=== PATIENT | female | born 1955 | race African-American/Black ===

== ENCOUNTER 2017-06-09 07:57 | Inpatient (IN) | payer BC ==
--- NOTE | 2017-06-09 08:15 | ER Document Report ---
ED General - General Chief Complaint: Blurred Vision Stated Complaint: BLURRED VISION Mode of Arrival: Ambulatory Information source: Patient Notes: 61-year-old female history of hypertension diabetes presents with complaints of one-week duration of being without her blood pressure medication, patient notes that she has had blurry vision in her left eye her lip has been numb. Patient also noted to be confused at triage, was able to state her birthday but took approximately 3 minutes to state her name TRAVEL OUTSIDE OF THE [place] IN LAST 30 DAYS: No - HPI Onset: Other - Unclear when symptoms started over the past week Onset/Duration: Persistent, Waxing and waning - Blurry vision has since resolved Quality of pain: No pain Severity: Moderate Associated symptoms: Headache, Other Exacerbated by: Denies Relieved by: Denies Similar symptoms previously: No Recently seen / treated by doctor: Yes - Related Data Allergies/Adverse Reactions: No Known Allergies Allergy (Verified 07/31/13 16:46) Past Medical History - Social History Smoking Status: Never Smoker Cigarette use (# per day): No Chew tobacco use (# tins/day): No Smoking Education Provided: No Family History: Reviewed & Not Pertinent Patient has suicidal ideation: No Patient has homicidal ideation: No - Past Medical History Cardiac Medical History: Reports: Hx Hypertension Endocrine Medical History: Reports: Hx Diabetes Mellitus Type 2 Renal/ Medical History: Denies: Hx Peritoneal Dialysis Past Surgical History: Reports: Hx Hysterectomy - Immunizations Hx Diphtheria, Pertussis, Tetanus Vaccination: Yes Review of Systems - Review of Systems Notes: REVIEW OF SYSTEMS: CONSTITUTIONAL : Denies fever, chills, or sweats. Denies recent illness. EENT: Admits to left eye blurry vision CARDIOVASCULAR: Denies chest pain. Denies palpitations or racing or irregular heart beat. Denies ankle edema. RESPIRATORY: Denies cough, cold, or chest congestion. Denies shortness of breath, difficulty breathing, or wheezing. GASTROINTESTINAL: Denies abdominal pain or distention. Denies nausea, vomiting , or diarrhea. Denies blood in vomitus, stools, or per rectum. Denies black, tarry stools. Denies constipation. GENITOURINARY: Denies difficulty urinating, painful urination, burning, frequency, blood in urine, or discharge. FEMALE GENITOURINARY: Denies vaginal bleeding, heavy or abnormal periods, irregular periods. Denies vaginal discharge or odor. MUSCULOSKELETAL: Denies back or neck pain or stiffness. Denies joint pain or swelling. SKIN: Denies rash, lesions or sores. HEMATOLOGIC : Denies easy bruising or bleeding. LYMPHATIC: Denies swollen, enlarged glands. NEUROLOGICAL: Admits to headache left facial numbness PSYCHIATRIC: Denies anxiety or stress. Denies depression, suicidal ideation, or homicidal ideation. ALL OTHER SYSTEMS REVIEWED AND NEGATIVE. PHYSICAL EXAMINATION: GENERAL: Well-appearing, well-nourished and in no acute distress. HEAD: Atraumatic, normocephalic. EYES: Pupils equal round and reactive to light, extraocular movements intact, conjunctiva are normal. ENT: Nares patent, oropharynx clear without exudates. Moist mucous membranes. NECK: Normal range of motion, supple without lymphadenopathy LUNGS: Breath sounds clear to auscultation bilaterally and equal. No wheezes rales or rhonchi. HEART: Regular rate and rhythm without murmurs ABDOMEN: Soft, nontender, nondistended abdomen. No guarding, no rebound. No masses appreciated. Female : deferred Musculoskeletal: Normal range of motion, no pitting or edema. No cyanosis. NEUROLOGICAL: Cranial nerves grossly intact. Normal speech, normal gait. Normal sensory, motor exams NIH score 0 PSYCH: Normal mood, normal affect. SKIN: Warm, Dry, normal turgor, no rashes or lesions noted. Dictation was performed using [employer] voice recognition software Physical Exam - Vital signs Vitals: Temp Pulse Resp BP Pulse Ox 98.6 F 71 16 230/141 H 98 06/09/17 08:00 06/09/17 08:00 06/09/17 08:00 06/09/17 08:00 06/09/17 08:00 Course - Re-evaluation Re-evalutation: 06/09/17 08:16 Patient is at this time asymptomatic however blood pressure is noted to be significantly elevated 230/141 she was emergently sent for CT head, I was able to access her medication list and note that she takes amlodipine 10 mg daily, clonidine 0.1 mg daily, losartan 100 mg tablet daily, and metoprolol 100 mg twice daily 06/09/17 09:23 pts blood pressure improved with hydralazine. pt is asymptomatic , but will observe due to the symptoms - Vital Signs Vital signs: Temp Pulse Resp BP Pulse Ox 98.6 F 67 16 156/86 H 100 06/09/17 08:00 06/09/17 08:20 06/09/17 09:05 06/09/17 09:05 06/09/17 09:05 - Laboratory Result Diagrams: 06/09/17 08:22 06/09/17 08:22 Laboratory results interpreted by me: 06/09/17 06/09/17 08:12 08:22 Glucose 148 H POC Glucose 124 H Calcium 10.3 H - Diagnostic Test Radiology reviewed: Image reviewed, Reports reviewed - EKG Interpretation by Me EKG shows normal: Sinus rhythm, [place], Intervals, QRS Complexes Critical Care Note - Critical Care Note Total time excluding time spent on procedures (mins): 37 Comments: 37 minutes of critical care time spent in direct contact evaluating and reevaluating the patient, treating symptoms, reviewing labs and studies and speaking with family and consultants excluding any procedures Discharge - Discharge Clinical Impression: Hypertensive urgency, Blurry vision, left eye, Confusion Condition: Stable Disposition: ADMITTED INPATIENT Admitting Provider: Hospitalist Unit Admitted: [facility]
[2017-06-09] MEDS ORDERED: HYDRALAZINE HCL INJ/PF 20 MG/1 ML SDV IV ONE (08:29)
--- NOTE | 2017-06-09 08:34 | RADIOLOGY REPORT (SQ) ---
EXAM DESCRIPTION: CT HEAD WITHOUT COMPLETED DATE/TIME: 06/09/2017 8:18 am REASON FOR STUDY: s/s stroke COMPARISON: 07/31/2013 TECHNIQUE: Axial images acquired through the brain without intravenous contrast. Images reviewed wi th bone, brain and subdural windows. Images stored on PACS. All CT scanners at this facility use dose modulation, iterative reconstruction, and/or weight based d osing when appropriate to reduce radiation dose to as low as reasonably achievable (ALARA). [facility]: Dose Right [facility]: CareDose [facility]: Dose Right [facility]: Teradose 4D [facility]: Smart [employer] RADIATION DOSE: Up-to-date CT equipment and radiation dose reduction techniques were employed. CTDIv ol: 64.6 mGy. DLP: 1292 mGy-cm. mGy. LIMITATIONS: None. FINDINGS: VENTRICLES: Prominent. CEREBRUM: No masses. No hemorrhage. No midline shift. Areas of low density in the white matter mos t likely due to chronic micro-vascular ischemic change. No evidence for acute infarction. CEREBELLUM: No masses. No hemorrhage. No alteration of density. No evidence for acute infarction. EXTRAAXIAL SPACES: Mild age-related involutional change. No fluid collections. No masses. ORBITS AND GLOBE: No intra- or extraconal masses. Normal contour of globe without masses. CALVARIUM: No fracture. PARANASAL SINUSES: No fluid levels. SOFT TISSUES: No mass or hematoma. OTHER: No other significant finding. IMPRESSION: MILD CHRONIC CHANGES OF ATROPHY AND MICROVASCULAR ISCHEMIA. NO ACUTE PROCESS. EVIDENCE OF ACUTE STROKE: NO. COMMENT: Pertinent positive or negative findings of the imaging study reported as a CRITICAL EXAM vane MARTINS DO at08:28 on 06/09/2017. Category of Critical Exam: Stroke alert. TECHNICAL DOCUMENTATION: JOB ID: [id number] Quality ID # [id number]: Final reports with documentation of one or more dose reduction techniques (e.g., Au tomated exposure control, adjustment of the mA and/or kV according to patient size, use of iterative reconstruction technique) 2010 [employer]- All Rights Reserved
[2017-06-09 08:39] LABS: ABSOLUTE BASOPHILS # (AUTO) 0.1 10^3/uL (0.0-0.2); ABSOLUTE EOSINOPHILS # (AUTO) 0.1 10^3/uL (0.0-0.6); ABSOLUTE LYMPHOCYTES (AUTO) 1.7 10^3/uL (0.5-4.7); ABSOLUTE MONOCYTES (AUTO) 0.5 10^3/uL (0.1-1.4); ABSOLUTE NEUT (AUTO) 4.3 10^3/uL (1.7-8.2); BASOPHILS % (AUTO) 0.8 % (0-2); EOSINOPHILS % (AUTO) 1.4 % (0-6); HEMATOCRIT 42.4 % (36.0-47.0); HEMOGLOBIN 14.2 g/dL (12.0-15.5); HGB HCT DIFFERENCE 0.2; LYMPHOCYTES % (AUTO) 25.7 % (13-45); MEAN CORPUSCULAR HEMOGLOBIN 28.5 pg (27.0-33.4); MEAN CORPUSCULAR HGB CONC 33.5 g/dL (32.0-36.0); MEAN CORPUSCULAR VOLUME 85 fl (80-97); MONOCYTES % (AUTO) 6.9 % (3-13); RED BLOOD COUNT 4.97 10^6/uL (3.72-5.28); RED CELL DISTRIBUTION WIDTH 13.3 % (11.5-14.0); SEGMENTED NEUTROPHILS % (AUTO) 65.2 % (42-78); WHITE BLOOD COUNT 6.7 10^3/uL (4.0-10.5)
--- NOTE | 2017-06-09 08:41 | RADIOLOGY REPORT (SQ) ---
EXAM DESCRIPTION: CHEST SINGLE VIEW COMPLETED DATE/TIME: 06/09/2017 8:17 am REASON FOR STUDY: weakness COMPARISON: 07/31/2013 EXAM PARAMETERS: NUMBER OF VIEWS: One view. TECHNIQUE: Single frontal radiographic view of the chest acquired. RADIATION DOSE: NA LIMITATIONS: None. FINDINGS: LUNGS AND PLEURA: No opacities, masses or pneumothorax. No pleural effusion. MEDIASTINUM AND HILAR STRUCTURES: No masses. Contour normal. HEART AND VASCULAR STRUCTURES: Heart normal in size. Normal vasculature. BONES: No acute findings. HARDWARE: None in the chest. OTHER: No other significant finding. IMPRESSION: NO ACUTE RADIOGRAPHIC FINDING IN THE CHEST. TECHNICAL DOCUMENTATION: JOB ID: [id number]
[2017-06-09 08:44] LABS: PARTIAL THROMBOPLASTIN TIME 34.7 SEC (23.5-35.8)
[2017-06-09 08:47] LABS: PROTHROMBIN TIME 12.5 SEC (11.4-15.4)
[2017-06-09 09:00] LABS: ALANINE AMINOTRANSFERASE 23 U/L (9-52); ALBUMIN 4.2 g/dL (3.5-5.0); ALKALINE PHOSPHATASE 81 U/L (38-126); ANION GAP 10 (5-19); ASPARTATE AMINO TRANSFERASE 16 U/L (14-36); BILIRUBIN,DIRECT 0.4 mg/dL (0.0-0.4); BILIRUBIN,TOTAL 0.8 mg/dL (0.2-1.3); BLOOD UREA NITROGEN 15 mg/dL (7-20); CALCIUM 10.3 mg/dL (8.4-10.2); CARBON DIOXIDE 29 mmol/L (22-30); CHLORIDE 105 mmol/L (98-107); CREATINE KINASE 55 U/L (30-135); CREATININE RESULT 0.94 mg/dL (0.52-1.25); GLUCOSE 148 mg/dL (75-110); POTASSIUM 3.6 mmol/L (3.6-5.0); SODIUM 144.2 mmol/L (137-145); TOTAL PROTEIN 7.7 g/dL (6.3-8.2)
[2017-06-09 09:12] LABS: CREATINE KINASE MB 0.59 ng/mL (<4.55)
[2017-06-09 09:14] LABS: TROPONIN I < 0.012 ng/mL
[2017-06-09] MEDS ORDERED: NORMAL SALINE 1000 ML 1,000 ML IV ONE ×2 (09:26→20:45)
[2017-06-09] MEDS ORDERED: CLONIDINE HCL 0.1 MG TABLET PO ONE (10:13)
[2017-06-09] MEDS ORDERED: ACETAMINOPHEN 325 MG TABLET PO PRN (10:13)
[2017-06-09 10:24] LABS: APPEARANCE,URINE CLEAR; BILIRUBIN,URINE NEGATIVE (NEGATIVE); GLUCOSE, URINE NEGATIVE (NEGATIVE); KETONES,URINE NEGATIVE (NEGATIVE); LEUKOCYTE ESTERASE,URINE MODERATE (NEGATIVE); NITRITE,URINE NEGATIVE (NEGATIVE); PROTEIN,URINE 30 mg/dL (NEGATIVE); URINE SPECIFIC GRAVITY 1.005; UROBILINOGEN,URINE NEGATIVE mg/dL (<2.0)
[2017-06-09 10:35] LABS: URINE BARBITURATES SCREEN NEGATIVE; URINE METHADONE SCREEN NEGATIVE; URINE OPIATES LOW NEGATIVE; URINE PHENCYCLIDINE SCREEN NEGATIVE
--- NOTE | 2017-06-09 12:22 | EKG REPORT ---
SEVERITY:- BORDERLINE ECG - SINUS RHYTHM BORDERLINE T WAVE ABNORMALITIES : Confirmed by: Yaneli Wilkes MD 09-Jun-2017 12:22:08
[2017-06-09] MEDS: CLONIDINE HCL 0.1 MG TABLET PO SCH ×2 (13:48→22:14)
[2017-06-09 14:17] LABS: CREATINE KINASE MB 0.56 ng/mL (<4.55)
[2017-06-09 14:19] LABS: TROPONIN I < 0.012 ng/mL
[2017-06-09] MEDS: HEPARIN SOD (PORCINE) 5,000 UNIT/ML 1 ML SYRINGE SUBCUT SCH ×2 (15:13→22:13)
[2017-06-09] MEDS: GLYBURIDE 5 MG TABLET PO SCH (16:59)
[2017-06-09] MEDS: METFORMIN HCL 500 MG TABLET PO SCH (17:00)
--- NOTE | 2017-06-09 17:38 | PDOC H&P ---
History of Present Illness Admission Date/PCP: 06/09/17 10:13 NOAH MARTINS DO History of Present Illness: DOUGLAS PERRY is a 61 year old female with a past medical history of hypertension, diabetes mellitus, hyperlipidemia who presented to the emergency department with complaints of facial numbness, temporary loss of vision, difficulty thinking without dysarthria or weakness. Patient reports that she ran out of her blood pressure medication approximately 2 weeks ago. She has been treated recently for a UTI and she is concerned that it has not cleared. Patient received hydralazine in the emergency department her blood pressure went from 230/141-150 . This did improve without any fluids to 180/100. Patient is Risser referred to the hospitalist service for hypertensive emergency Past Medical History Cardiac Medical History: Reports: Hyperlipidema, Hypertension Endocrine Medical History: Reports: Diabetes Mellitus Type 2 Past Surgical History Past Surgical History: Reports: Hysterectomy Social History Smoking Status: Never Smoker Frequency of Alcohol Use: Rare Hx Recreational Drug Use: No Hx Prescription Drug Abuse: No - Advance Directive Resuscitation Status: Full Code Surrogate healthcare decision maker:: Jacqui Oliveros, daughter Family History Family History: CAD, CVA, DM, Hypertension Parental Family History Reviewed: Yes Children Family History Reviewed: Yes Sibling(s) Family History Reviewed.: Yes Medication/Allergy Home Medications: Atorvastatin Calcium [Lipitor 10 mg Tablet] 10 mg PO DAILY 06/09/17 Ergocalciferol (Vitamin D2) [Vitamin D2] 50,000 unit PO WILSON@1000 06/09/17 Glyburide [Diabeta 5 mg Tablet] 5 mg PO DAILY 06/09/17 Metformin HCl [Glucophage] 1,000 mg PO BID 06/09/17 Sulfamethoxazole/Trimethoprim [Septra-Ds 800-160 mg Tablet] 1 tab PO Q12 Allergies/Adverse Reactions: lisinopril Adverse Reaction (Verified 06/09/17 13:02) Review of Systems Constitutional: PRESENT: headache(s), weight loss - Intentional. ABSENT: chills , fever(s), weight gain Eyes: PRESENT: visual disturbances Ears: ABSENT: hearing changes Nose, Mouth, and Throat: PRESENT: headache(s) Cardiovascular: ABSENT: chest pain, dyspnea on exertion, edema, orthropnea, palpitations Respiratory: ABSENT: cough, dyspnea, hemoptysis, sputum Gastrointestinal: PRESENT: nausea. ABSENT: abdominal pain, constipation, diarrhea, hematemesis, hematochezia, melena, vomiting Genitourinary: PRESENT: other - Foul-smelling urine. ABSENT: dysuria, hematuria Musculoskeletal: ABSENT: joint swelling Integumentary: ABSENT: rash, wounds Neurological: PRESENT: confusion, tingling. ABSENT: abnormal gait, abnormal speech, dizziness, focal weakness, syncope Psychiatric: ABSENT: anxiety, depression, homidical ideation, suicidal ideation Endocrine: ABSENT: cold intolerance, heat intolerance, polydipsia, polyuria Hematologic/Lymphatic: ABSENT: easy bleeding, easy bruising Physical Exam Vital Signs: Temp Pulse Resp BP Pulse Ox 98.4 F 80 19 197/97 H 98 06/09/17 15:17 06/09/17 15:17 06/09/17 15:17 06/09/17 15:17 06/09/17 15:17 Intake & Output 06/08/17 06/09/17 06/10/17 06:59 06:59 06:59 Weight 120.3 kg General appearance: PRESENT: morbidly obese, well-developed, well-nourished Head exam: PRESENT: atraumatic, normocephalic Eye exam: PRESENT: conjunctiva pink, EOMI, PERRLA. ABSENT: nystagmus, periorbital swelling, scleral icterus Ear exam: PRESENT: normal external ear exam Mouth exam: PRESENT: moist, tongue midline Neck exam: ABSENT: JVD, lymphadenopathy, thyromegaly, tracheal deviation Respiratory exam: PRESENT: clear to auscultation renu. ABSENT: rales, rhonchi, wheezes Cardiovascular exam: PRESENT: RRR, +S1, +S2. ABSENT: diastolic murmur, gallop, rubs, systolic murmur Pulses: PRESENT: normal dorsalis pedis pul Vascular exam: PRESENT: normal capillary refill GI/Abdominal exam: PRESENT: normal bowel sounds, soft. ABSENT: distended, firm , guarding, mass, organolmegaly, rebound, rigid, tenderness Rectal exam: PRESENT: deferred Extremities exam: PRESENT: full ROM. ABSENT: calf tenderness, clubbing, pedal edema Musculoskeletal exam: PRESENT: full ROM Neurological exam: PRESENT: alert, awake, oriented to person, oriented to place , oriented to time, oriented to situation, CN II-XII grossly intact. ABSENT: motor sensory deficit Psychiatric exam: PRESENT: anxious, appropriate affect. ABSENT: homicidal ideation, suicidal ideation Skin exam: PRESENT: dry, intact, warm. ABSENT: cyanosis, rash Results Laboratory Results: 06/09/17 06/09/17 13:33 13:33 Creatine Kinase 36 CK-MB (CK-2) 0.56 Troponin I < 0.012 06/09/17 06/09/17 06/09/17 08:22 08:22 09:50 WBC 6.7 Hgb 14.2 Creatinine 0.94 Glucose 148 H Albumin 4.2 Ur Leukocyte Esterase MODERATE H Urine WBC (Auto) 9 Urine Cocaine Screen 06/09/17 09:50 WBC Hgb Creatinine Glucose Albumin Ur Leukocyte Esterase Urine WBC (Auto) Urine Cocaine Screen NEGATIVE Impressions: Head CT 06/09/17 00:00 IMPRESSION: MILD CHRONIC CHANGES OF ATROPHY AND MICROVASCULAR ISCHEMIA. NO ACUTE PROCESS. EVIDENCE OF ACUTE STROKE: NO. Chest X-Ray 06/09/17 08:07 IMPRESSION: NO ACUTE RADIOGRAPHIC FINDING IN THE CHEST. Assessment & Plan - Diagnosis (1) Hypertensive emergency Is this a current diagnosis for this admission?: Yes Plan: Patient presented with a blood pressure of 230/141. This improved quite rapidly with 20 mg of IV hydralazine. We will resume patient's home medications and I have significant concerns that this is likely secondary to rebound hypertension due to not having her clonidine. Initial CT of the head is negative. Continue mend examinations although CVA less likely. Patient did have recent lipid studies which were within acceptable limits at her primary care office. Continue to monitor cardiac enzymes and patient on telemetry. Goal blood pressure in the first 24 hours is 180. 06/09/17 08:00 Blood Pressure 230/141 H Generic Name Dose Route Start Last Admin Trade Name Freq PRN Reason Stop Dose Admin Hydralazine HCl 20 mg 06/09/17 08:29 06/09/17 08:45 Apresoline Inj/Pf 20 Mg/1 Ml Sdv IV 06/09/17 08:30 20 mg NOW ONE (2) Diabetes mellitus Qualifiers: Diabetes mellitus type: type 2 Diabetes mellitus complication status: with unspecified complications Diabetes mellitus senior care insulin use: without mule developer use Qualified Code(s): E11.8 - Type 2 diabetes mellitus with unspecified complications Is this a current diagnosis for this admission?: Yes Plan: Patient's last hemoglobin A1c was 8.1 approximately 2 weeks ago. Will increase her glyburide to twice daily and continue her metformin. Place patient on a carb controlled diet. Patient is actively dieting and reports that she has lost 70 pounds within the last year and a half. (3) Hyperlipidemia Qualifiers: Hyperlipidemia type: unspecified Qualified Code(s): E78.5 - Hyperlipidemia , unspecified Is this a current diagnosis for this admission?: Yes (4) Morbid obesity Is this a current diagnosis for this admission?: Yes - Time Time Spent: 50 to 70 Minutes Medications reviewed and adjusted accordingly: Yes Anticipated discharge: Home Within: within 48 hours
[2017-06-09] MEDS ORDERED: CEFTRIAXONE 1 GM/D5W RTU 1 GM/50 ML RTUPB IV SCH (18:00)
[2017-06-09 20:26] LABS: TROPONIN I < 0.012 ng/mL
[2017-06-09] MEDS: AMLODIPINE BESYLATE 5 MG TABLET PO SCH (22:14)
[2017-06-09] MEDS ORDERED: DEXTROSE 40% GEL 15 GM TUBE PO PRN ×2 (22:31)
[2017-06-09] MEDS ORDERED: GLUCAGON,HUMAN RECOMB 1 MG INJ IM PRN (22:31)
[2017-06-09] MEDS ORDERED: DEXTROSE 50%-WATER 25 GM/50 ML DISP.SYRIN IV PRN ×2 (22:31)
[2017-06-09] MEDS ORDERED: INSULIN LISPRO 100 UNIT/ML 3 ML VIAL SUBCUT PRN (22:31)
[2017-06-10 02:31] LABS: CREATINE KINASE MB 0.54 ng/mL (<4.55)
[2017-06-10 02:44] LABS: TROPONIN I < 0.012 ng/mL
[2017-06-10] MEDS: CLONIDINE HCL 0.1 MG TABLET PO SCH (05:15)
[2017-06-10] MEDS: HEPARIN SOD (PORCINE) 5,000 UNIT/ML 1 ML SYRINGE SUBCUT SCH (05:16)
[2017-06-10] MEDS: GLYBURIDE 5 MG TABLET PO SCH (07:50)
[2017-06-10] MEDS ORDERED: LOSARTAN POTASSIUM 50 MG TABLET PO SCH (10:00)
[2017-06-10] MEDS ORDERED: ATORVASTATIN CALCIUM 10 MG TABLET PO SCH (10:00)
[2017-06-10] MEDS: AMLODIPINE BESYLATE 5 MG TABLET PO SCH (11:20)
[2017-06-10] MEDS: METFORMIN HCL 500 MG TABLET PO SCH (11:21)
[2017-06-10 12:35] VITALS: BP 150/110
--- NOTE | 2017-06-10 15:25 | PDOC DISCHARGE SUMMARY ---
General - Admit/Disc Date/PCP Admission Date/Primary Care Provider: 06/09/17 10:13 NOAH MATRINS, Discharge Date: 06/10/17 - Discharge Diagnosis (1) Hypertensive emergency Is this a current diagnosis for this admission?: Yes (2) Diabetes mellitus Is this a current diagnosis for this admission?: Yes (3) Hyperlipidemia Is this a current diagnosis for this admission?: Yes (4) Morbid obesity Is this a current diagnosis for this admission?: Yes - Additional Information Resuscitation Status: Full Code Discharge Diet: Cardiac, Diabetic Discharge Activity: Activity As Tolerated Home Medications: Atorvastatin Calcium [Lipitor 10 mg Tablet] 10 mg PO DAILY 06/09/17 Ergocalciferol (Vitamin D2) [Vitamin D2] 50,000 unit PO WILSON@1000 06/09/17 Amlodipine Besylate [Norvasc 10 mg Tablet] 10 mg PO DAILY #30 tablet 06/10/17 Clonidine HCl [Catapres 0.1 mg Tablet] 0.1 mg PO Q8 #90 tablet 06/10/17 Glyburide [Diabeta 5 mg Tablet] 5 mg PO BIDBS #60 tablet 06/10/17 Hydrochlorothiazide [Hydrodiuril 25 mg Tablet] 25 mg PO QAM #30 tablet 06/10/17 Losartan Potassium 100 mg PO DAILY #30 tablet 06/10/17 Metformin HCl [Glucophage] 1,000 mg PO BID #60 tablet 06/10/17 History of Present Illness History of Present Illness: DOUGLAS PERRY is a 61 year old female with a past medical history of hypertension, diabetes mellitus, hyperlipidemia who presented to the emergency department with complaints of facial numbness, temporary loss of vision, difficulty thinking without dysarthria or weakness. Patient reports that she ran out of her blood pressure medication approximately 2 weeks ago. She has been treated recently for a UTI and she is concerned that it has not cleared. Patient received hydralazine in the emergency department her blood pressure went from 230/141-150 . This did improve without any fluids to 180/100. Patient is Risser referred to the hospitalist service for hypertensive emergency Hospital Course Hospital Course: Patient's blood pressure was gradually brought in over the first 24 hours. Patient's home medications were resumed. She had good response to this. Her diastolic remains slightly elevated, patient reports that she is quite nervous. Advise close follow-up for titration of her antihypertensives. Patient denies headache, chest pain, numbness, tingling, weakness, nausea, vomiting, fevers, chills. She requests discharge. Her cardiac enzymes were negative 3. Physical Exam Vital Signs: Temp Pulse Resp BP Pulse Ox 98.3 F 71 19 150/110 H 99 06/10/17 12:34 06/10/17 12:34 06/10/17 12:34 06/10/17 12:34 06/10/17 12:34 Intake & Output 06/09/17 06/10/17 06/11/17 06:59 06:59 06:59 Intake Total 2752 454 Balance 2752 454 Weight 122.4 kg Exam: General: Awake alert and oriented x3, no acute respiratory distress HEENT: AT/NC, PERRL, EOMI, oropharynx is moist, pink, no scleral icterus, no conjunctival injection Neck: No JVD, trachea midline Chest: Clear to auscultation bilaterally, no wheezes rhonchi or rales CV: Regular rate and rhythm, normal S1 and S2, no murmur, rub, or gallop Abdomen: Soft, nontender to palpation, nondistended, active bowel sounds; no rebound, rigidity, or guarding Extremities: No cyanosis, clubbing or edema Neuro: Cranial nerves II through XII are grossly intact without focal deficits; awake alert and oriented x3 Psych: Normal mood and affect Results Laboratory Results: 06/09/17 06/09/17 06/09/17 13:33 13:33 19:30 Creatine Kinase 36 41 CK-MB (CK-2) 0.56 Troponin I < 0.012 06/09/17 06/10/17 06/10/17 19:30 01:59 01:59 Creatine Kinase 48 CK-MB (CK-2) 0.40 0.54 Troponin I < 0.012 < 0.012 Impressions: Head CT 06/09/17 00:00 IMPRESSION: MILD CHRONIC CHANGES OF ATROPHY AND MICROVASCULAR ISCHEMIA. NO ACUTE PROCESS. EVIDENCE OF ACUTE STROKE: NO. Chest X-Ray 06/09/17 08:07 IMPRESSION: NO ACUTE RADIOGRAPHIC FINDING IN THE CHEST. Qualifiers PATEINT BEING DISCHARGED WITH ANY OF THE FOLLOWING DIAGNOSIS?: No Plan Time Spent: Less than 30 Minutes
== END 2017-06-10 13:22 | disposition home or self-care (01) | DRG 305 ==
LOC: ER 07:57 → EH 09:40 → UNDOADMIN 09:40 → EH 10:13 → 3S 10:53
PROVIDERS: ADMIT Family Medicine; ATTEND Family Medicine
DX: I16.1 Hypertensive emergency (principal); Z68.41 Body mass index [BMI] 40.0-44.9, adult; E78.5 Hyperlipidemia, unspecified; I10 Essential (primary) hypertension; H53.8 Other visual disturbances; F32.9 Major depressive disorder, single episode, unspecified; E11.8 Type 2 diabetes mellitus with unspecified complications; E66.01 Morbid (severe) obesity due to excess calories; Z91.14 Patient's other noncompliance with medication regimen; Z79.84 Long term (current) use of oral hypoglycemic drugs
CPT/HCPCS: 36415; 70450; 71010; 80053; 80307; 81001; 82550; 82553; 82962; 84484; 85025; 85610; 85730; 87086; 93005; 93010; 96374; 99291; J0360; J0696; J1644; J3490; J7030

== ENCOUNTER → 2018-06-23 | Outpatient (CLI) | payer BC ==
[2018-06-23 11:07] LABS: C-REACTIVE PROTEIN 5.7 mg/L (<10.0); URIC ACID 5.8 mg/dL (2.5-7.5)
[2018-06-25 17:52] LABS: CYCLIC CITRUL PEPTIDE IGG/A AB 7 units (0-19)
== END ==
LOC: OD 09:51
PROVIDERS: ATTEND Orthopaedic Surgery
DX: M79.641 Pain in right hand (principal); M79.642 Pain in left hand
CPT/HCPCS: 36415; 84550; 85652; 86038; 86140; 86200; 86430

== ENCOUNTER 2018-08-02 21:23 | Emergency (ER) | payer BC ==
[2018-08-02] MEDS ORDERED: ASPIRIN 81 MG TABLET, CHEWABLE PO ONE (21:49)
--- NOTE | 2018-08-02 22:30 | RADIOLOGY REPORT (SQ) ---
EXAM DESCRIPTION: XR CHEST 1 VIEW COMPLETED DATE/TME: 08/02/2018 21:49 CLINICAL HISTORY: 63 years, Female, cp Findings: Heart is borderline enlarged. Aorta is uncoiled. No consolidations or pleural effusions. No pulmonary edema or pneumothorax. IMPRESSION: No acute disease.
[2018-08-02 23:33] LABS: ABSOLUTE BASOPHILS # (AUTO) 0.1 10^3/uL (0.0-0.2); ABSOLUTE EOSINOPHILS # (AUTO) 0.1 10^3/uL (0.0-0.6); ABSOLUTE LYMPHOCYTES (AUTO) 1.7 10^3/uL (0.5-4.7); ABSOLUTE MONOCYTES (AUTO) 0.5 10^3/uL (0.1-1.4); ABSOLUTE NEUT (AUTO) 6.4 10^3/uL (1.7-8.2); BASOPHILS % (AUTO) 0.8 % (0-2); EOSINOPHILS % (AUTO) 1.1 % (0-6); HEMATOCRIT 38.6 % (36.0-47.0); LYMPHOCYTES % (AUTO) 19.2 % (13-45); MEAN CORPUSCULAR HEMOGLOBIN 28.5 pg (27.0-33.4); MEAN CORPUSCULAR HGB CONC 33.5 g/dL (32.0-36.0); MEAN CORPUSCULAR VOLUME 85 fl (80-97); MONOCYTES % (AUTO) 5.8 % (3-13); PLATELET COUNT 278 10^3/uL (150-450); RED BLOOD COUNT 4.55 10^6/uL (3.72-5.28); RED CELL DISTRIBUTION WIDTH 13.5 % (11.5-14.0); SEGMENTED NEUTROPHILS % (AUTO) 73.1 % (42-78); TOTAL CELLS COUNTED % (AUTO) 100 %; WHITE BLOOD COUNT 8.8 10^3/uL (4.0-10.5)
--- NOTE | 2018-08-02 23:37 | ER Document Report ---
ED General - General Chief Complaint: Arm Pain Stated Complaint: LEFT ARM PAIN Time Seen by Provider: 08/02/18 23:32 Notes: Patient is a pleasant 63-year-old female presents with complaint of pain in her left arm. Some been ongoing for 3 days. Worse with movement. Worse with palpation. Says it is a sharp pain that shoots down from her shoulder into her elbow and the back of her arm into her shoulder again. Some pain into the left trapezius muscle. No pain to the neck. She says later on today she suddenly got a warm feeling in her right arm followed by some swelling in the antecubital region. Said the swelling went down and now she just has a knot there. That is why she is come to the ER. No chest pain. No back pain. No difficulty breathing. No abdominal pain. No vomiting. No fevers. No history of DVT. No other complaints at this time. Patient does have history of hypertension. She took her morning meds but never took her afternoon or evening clonidine. After arriving here she took her clonidine approximately 30 minutes ago. TRAVEL OUTSIDE OF THE [place] IN LAST 30 DAYS: No - Related Data Allergies/Adverse Reactions: lisinopril Adverse Reaction (Verified 06/09/17 13:02) Past Medical History - Social History Smoking Status: Unknown if Ever Smoked Frequency of alcohol use: None Drug Abuse: None Family History: CAD, CVA, DM, Hypertension - Past Medical History Cardiac Medical History: Reports: Hx Hypercholesterolemia, Hx Hypertension Endocrine Medical History: Reports: Hx Diabetes Mellitus Type 2 Renal/ Medical History: Denies: Hx Peritoneal Dialysis Past Surgical History: Reports: Hx Hysterectomy - Immunizations Hx Diphtheria, Pertussis, Tetanus Vaccination: Yes Review of Systems - Review of Systems Notes: My Normal Review Basic REVIEW OF SYSTEMS: CONSTITUTIONAL : Denies fever, chills, or sweats. Denies recent illness. EENT: Denies eye, ear, throat, or mouth pain or symptoms. Denies nasal or sinus congestion. CARDIOVASCULAR: Denies chest pain. RESPIRATORY: Denies cough, cold, or chest congestion. Denies shortness of breath, difficulty breathing, or wheezing. GASTROINTESTINAL: Denies abdominal pain. Denies nausea, vomiting, or diarrhea. MUSCULOSKELETAL: Pain in left arm. Knot in right arm. SKIN: Denies rash or skin lesions. NEUROLOGICAL: Denies altered mental status or loss of consciousness. ALL OTHER SYSTEMS REVIEWED AND NEGATIVE. Physical Exam - Vital signs Vitals: Temp Pulse Resp BP Pulse Ox 98.4 F 89 16 199/120 H 98 08/02/18 21:23 08/02/18 21:23 08/02/18 21:23 08/02/18 21:23 08/02/18 21:23 - Notes Notes: General Appearance: Well nourished, alert, cooperative, no acute distress, no obvious discomfort. Well-appearing. Vitals: reviewed, See vital signs table. Eyes: PERRL, EOMI, Conjuctiva clear Mouth: No decreasd moisture Neck: No midline tenderness to palpation. Lungs: No wheezing, No rales, No rhonci, No accessory muscle use, good air exchange bilaterally. Heart: Normal rate, Regular rythm, No murmur, no rub Extremities: strength 5/5 in all extremities, good pulses in all extremities, small knot that she is a palpable to palpation in the right antecubital region. No redness. No significant swelling on exam. Remainder of right upper extremity is nontender. Good distal pulses. Patient's left arm is very tender to palpation along the left upper arm. No pain into the wrist or hand. No redness or swelling. Some pain into the left trapezius muscle. Good strength in both hands. Good distal sensation bilaterally. Skin: warm, dry, appropriate color, no rash Neuro: speech clear, oriented x 3, normal affect, responds appropriately to questions. Course - Re-evaluation Re-evalutation: 08/03/18 02:02 Patient's cardiac workup is negative. Do not suspect coronary disease as a etiology behind her arm pain being the arm pain is very easily reproducible palpation. I do feel like she has venous Doppler of upper extremities being that she had the sudden onset of swelling in the antecubital region and now has a small knot there. I have ordered venous Dopplers which will be available to be done this morning. If these are negative feel the patient states to be discharged home. Suspect some of the pain coming into her left arm could be related to pinched nerve or muscle skeletal. She has pain going all into the trapezius muscle down her arm that she is reproducible. Not exactly sure what could may be causing the onset of swelling that she had in her right arm; however, if Doppler is negative I feel she safe to go home being that the swelling has since resolved. Dictation of this chart was performed using voice recognition software; therefore, there may be some unintended grammatical errors. - Vital Signs Vital signs: Temp Pulse Resp BP Pulse Ox 98.4 F 89 14 152/88 H 100 08/02/18 21:23 08/02/18 21:23 08/03/18 03:01 08/03/18 03:01 08/03/18 03:01 - Laboratory Result Diagrams: 08/02/18 23:23 08/02/18 23:23 Laboratory results interpreted by me: 08/02/18 23:23 BUN 22 H Est GFR (Non-Af Amer) 57 L Glucose 210 H - EKG Interpretation by Me Additional EKG results interpreted by me: 08/02/18 23:36 EKG is reviewed and interpreted by me. EKG shows sinus rhythm with a rate of [address] segment elevation or depression. No ischemic T wave inversions. NJ interval, QRS duration, QTc intervals are within normal range. Old EKG for comparison is from June 09, 2017. Discharge - Discharge Clinical Impression: Arm pain Qualifiers: Laterality: bilateral Qualified Code(s): M79.601 - Pain in right arm; M79.602 - Pain in left arm; M79.602 - Pain in left arm Condition: Good Disposition: HOME, SELF-CARE Additional Instructions: Your workup evaluating your heart did not show any concerning findings. Your ultrasounds of your arms did not show any evidence of clotting. I do not know the exact cause of the brief swelling your had in your right arm. Please follow up with your doctor within a week for reevaluation of your arm. I suspect the pain in your left arm could be musculoskeletal or related to a pinched nerve. Please take tylenol for pain and follow up closely with your doctor to make sure you are improving. please return to the ER immediately if you develop any chest pain, difficulty breathing, worsening arm pain, or feel unwell.
[2018-08-02 23:49] LABS: ALANINE AMINOTRANSFERASE 9 U/L (9-52); ALKALINE PHOSPHATASE 83 U/L (38-126); ANION GAP 13 (5-19); ASPARTATE AMINO TRANSFERASE 17 U/L (14-36); BILIRUBIN,DIRECT 0.3 mg/dL (0.0-0.4); BILIRUBIN,TOTAL 0.5 mg/dL (0.2-1.3); BLOOD UREA NITROGEN 22 mg/dL (7-20); CALCIUM 10.2 mg/dL (8.4-10.2); CARBON DIOXIDE 27 mmol/L (22-30); CHLORIDE 102 mmol/L (98-107); CREATINE KINASE 78 U/L (30-135); GLUCOSE 210 mg/dL (75-110); POTASSIUM 3.7 mmol/L (3.6-5.0); SODIUM 142.3 mmol/L (137-145); TOTAL PROTEIN 7.5 g/dL (6.3-8.2)
[2018-08-02 23:59] LABS: CREATINE KINASE MB 0.59 ng/mL (<4.55); TROPONIN I < 0.012 ng/mL
--- NOTE | 2018-08-03 08:17 | EKG REPORT ---
SEVERITY:- ABNORMAL ECG - SINUS RHYTHM LEFT ATRIAL ABNORMALITY : Confirmed by: Yaneli Wilkes MD 03-Aug-2018 08:15:57
[2018-08-03 09:57] VITALS: BP 152/80
--- NOTE | 2018-08-03 10:14 | RADIOLOGY REPORT (SQ) ---
EXAM DESCRIPTION: VENOUS BILATERAL UPPER COMPLETED DATE/TIME: 08/03/2018 9:57 am REASON FOR STUDY: pain and swelling COMPARISON: None. TECHNIQUE: Dynamic and static alfaro scale and color images acquired of the right and left arm venous system. Selected spectral images acquired with additional compression and augmentation maneuvers. The contralateral subclavian vein and internal jugular vein were also imaged. Images stored on PACS. LIMITATIONS: None. FINDINGS: INTERNAL JUGULAR VEIN: Normal phasicity, compression, augmentation. No visualized echogeni c material on alfaro scale. No defects on color images. Comparison opposite side normal. SUBCLAVIAN VEIN: Normal compression, augmentation. No visualized echogenic material on alfaro scale. No defects on color images. AXILLARY VEIN: Normal compression, augmentation. No visualized echogenic material on alfaro scale. No d efects on color images. BRACHIAL VEIN: Normal compression, augmentation. No visualized echogenic material on alfaro scale. No d efects on color images. BASILIC VEIN: Normal compression, augmentation. No visualized echogenic material on alfaro scale. No de fects on color images. CEPHALIC VEIN: Normal compression, augmentation. No visualized echogenic material on alfaro scale. No d efects on color images. OTHER: No other significant finding. CONTRALATERAL SUBCLAVIAN VEIN AND INTERNAL JUGULAR VEIN: Normal phasicity, compression and augmentation. No visualized echogenic material on alfaro scale. No de fects on color images. IMPRESSION: Negative ultrasound examination for deep venous thrombosis of the bilateral upper extrem ities. TECHNICAL DOCUMENTATION: JOB ID: [id number] [employer]- All Rights Reserved Reading location - IP/workstation name: [email or web address]
== END 2018-08-03 09:57 | disposition home or self-care (01) ==
LOC: ER 21:23
DX: M79.602 Pain in left arm (principal); M25.512 Pain in left shoulder; M25.522 Pain in left elbow; M79.601 Pain in right arm; R22.31 Localized swelling, mass and lump, right upper limb; M79.18 Myalgia, other site; E11.9 Type 2 diabetes mellitus without complications; I10 Essential (primary) hypertension; Z79.899 Other long term (current) drug therapy
CPT/HCPCS: 36415; 71045; 80053; 82550; 82553; 84484; 85025; 93005; 93010; 93970; 99284

== ENCOUNTER 2019-05-24 23:41 | Emergency (ER) | payer BC ==
[2019-05-25] MEDS ORDERED: LIDOCAINE 2% VISCOUS SOLN 20 ML UDCUP PO ONE (00:40)
[2019-05-25] MEDS ORDERED: CLINDAMYCIN HCL 150 MG CAPSULE PO ONE (00:40)
[2019-05-25] MEDS ORDERED: KETOROLAC TROMETHAMINE 60 MG/2 ML SDV IM ONE (00:40)
--- NOTE | 2019-05-25 00:45 | ER Document Report ---
HPI - HPI Time Seen by Provider: 05/25/19 00:40 Pain Level: 5 Notes: Patient is a 63 year-old female who presents to the ED complaining of left upper dental pain #12 x a few days, with swelling that started x1 day. She has not noticed any obvious abscess or purulent discharge. Patient states that she is still able to eat and drink, but does have a decreased p.o. intake due to the pain. Pain will occasionally radiate to the left neck, but is not constant. She has tried some [id number] meds with minimal relief. She did see her dentist today who gave her a mouth guard for grinding but nothing else. No other concerns or complaints. Denies any headache, fever, head injury, current neck pain, hoarseness, drooling, URI, sore throat, chest pain, palpitations, syncope, cough, shortness of breath, wheeze, dyspnea, abdominal pain, nausea/vomiting/diarrhea, urinary retention, dysuria, hematuria, or rash. - ROS Systems Reviewed and Negative: Yes All other systems reviewed and negative - REPRODUCTIVE Reproductive: DENIES: : Past Medical History - Social History Smoking Status: Unknown if Ever Smoked Family History: CAD, CVA, DM, Hypertension - Past Medical History Cardiac Medical History: Reports: Hx Hypercholesterolemia, Hx Hypertension Endocrine Medical History: Reports: Hx Diabetes Mellitus Type 2 Renal/ Medical History: Denies: Hx Peritoneal Dialysis Past Surgical History: Reports: Hx Hysterectomy - Immunizations Hx Diphtheria, Pertussis, Tetanus Vaccination: Yes Vertical Provider Document - CONSTITUTIONAL Agree With Documented VS: Yes Notes: PHYSICAL EXAMINATION: GENERAL: Well-appearing, well-nourished and in no acute distress. HEAD: Atraumatic, normocephalic. EYES: Pupils equal round and reactive to light, extraocular movements intact, sclera anicteric, conjunctiva are normal. ENT: EAC clear b/l. TM's intact b/l without erythema, fluid, or perforation. Nares patent and without discharge. oropharynx clear without exudates. No tonsilar hypertrophy or erythema. Moist mucous membranes. No sinus tenderness. Uvula midline. No palatine shift. Mouth: Poor dentition. + mild decay and mild gingivitis. No obvious abscess or discharge noted. + reproducible moderate tenderness to tooth #12 with mild upper jaw/face swelling corresponding to this area. Swelling appears contained outside of the teeth w/o obvious airway compromise. No tongue protrusion. NECK: Normal range of motion, supple without lymphadenopathy. No rigidity/meningismus. No bruit. Non-tender to palpation throughout. LUNGS: Breath sounds clear to auscultation bilaterally and equal. No wheezes rales or rhonchi. HEART: Regular rate and rhythm without murmurs, rubs, gallops. NEUROLOGICAL: Cranial nerves grossly intact. Normal speech, normal gait. Normal sensory, motor exams PSYCH: Normal mood, normal affect. SKIN: Warm, Dry, normal turgor, no rashes or lesions noted. - INFECTION CONTROL TRAVEL OUTSIDE OF THE [place] IN LAST 30 DAYS: No Course - Re-evaluation Re-evalutation: 05/25/19 00:44 Patient is an afebrile, well-hydrated, 63yo female who presents to the ED with dental pain, suspect nerve root etiology versus infection. Vitals are acceptable. PE is otherwise unremarkable. No I&D, labs, or imaging warranted at this time based on H&P. Viscous lidocaine, 1st dose of clinda, and toradol given today. I will send her home with a prescription for cleocin. Low suspicion for any meningitis, sepsis, peritonsillar/pharyngeal abscess, respiratory compromise, Driss's, temporal arteritis, or other emergent systemic condition at this time. Patient is aware this condition can change from initial presentation and she needs to monitor symptoms closely. Strict return precautions reviewed. Conservative measures otherwise for symptoms. Call to schedule an appointment with a dentist for further evaluation and management. Recheck with your PCM this week as well. Return to the ED with any worsening/concerning symptoms otherwise as reviewed in discharge. Patient is in agreement. - Vital Signs Vital signs: Temp Pulse Resp BP Pulse Ox 98.8 F 84 17 173/101 H 96 05/24/19 23:54 05/24/19 23:54 05/24/19 23:54 05/24/19 23:54 05/24/19 23:54 Discharge - Discharge Clinical Impression: Pain, dental Condition: Stable Disposition: HOME, SELF-CARE Instructions: Toothache ([facility]), Clindamycin ([facility]) Additional Instructions: Dixon and floss twice daily Maintain fluid intake Take antibiotics as directed Mouthwash, salt water gargles, peroxide rinse as needed Tylenol/ibuprofen as needed Recheck with PCM this week Call today/tomorrow and schedule an appointment with your dentist for further evaluation Return to the ED with any worsening symptoms and/or development of fever, headache, facial swelling, swelling of lips/tongue/throat, trouble swallowing, drooling, hoarseness, neck pain/stiffness, chest pain, palpitations, syncope, shortness of breath, trouble breathing, abdominal pain, n/v/d, numbness/tingling, or other worsening symptoms that are concerning to you. Prescriptions: Clindamycin HCl [Cleocin 300 mg Capsule] 300 mg PO TID #30 capsule Forms: Elevated Blood Pressure Referrals: SAVANNAH LYMAN MD [ACTIVE STAFF] - Follow up as needed ALON HUDSON MD [Primary Care Provider] - Follow up as needed
[2019-05-25 01:31] VITALS: BP 140/91
== END 2019-05-25 01:10 | disposition home or self-care (01) ==
LOC: ER 23:41
DX: K08.89 Other specified disorders of teeth and supporting structures (principal); R22.0 Localized swelling, mass and lump, head; I10 Essential (primary) hypertension; E11.9 Type 2 diabetes mellitus without complications
CPT/HCPCS: 99283; 96372; J1885; J3490

== ENCOUNTER 2020-02-26 08:03 | Emergency (ER) | payer BC, MEDICARE ==
[2020-02-26 08:37] VITALS: BP 189/84
[2020-02-26] MEDS ORDERED: NORMAL SALINE 1000 ML 1,000 ML IV ONE (08:56)
[2020-02-26] MEDS ORDERED: MORPHINE SULFATE 10 MG/ML INJ IV ONE (09:10)
[2020-02-26] MEDS ORDERED: ONDANSETRON HCL INJ/PF 4 MG/2 ML SDV IV ONE (09:10)
[2020-02-26 10:30] LABS: ABSOLUTE EOSINOPHILS # (AUTO) 0.1 10^3/uL (0.0-0.6); ABSOLUTE LYMPHOCYTES (AUTO) 1.5 10^3/uL (0.5-4.7); ABSOLUTE MONOCYTES (AUTO) 0.5 10^3/uL (0.1-1.4); ABSOLUTE NEUT (AUTO) 7.5 10^3/uL (1.7-8.2); BASOPHILS % (AUTO) 0.4 % (0-2); EOSINOPHILS % (AUTO) 0.8 % (0-6); HEMOGLOBIN 13.9 g/dL (12.0-15.5); LYMPHOCYTES % (AUTO) 15.2 % (13-45); MEAN CORPUSCULAR HEMOGLOBIN 28.7 pg (27.0-33.4); MEAN CORPUSCULAR VOLUME 87 fl (80-97); MONOCYTES % (AUTO) 5.7 % (3-13); PLATELET COUNT 288 10^3/uL (150-450); RED BLOOD COUNT 4.84 10^6/uL (3.72-5.28); RED CELL DISTRIBUTION WIDTH 13.7 % (11.5-14.0); SEGMENTED NEUTROPHILS % (AUTO) 77.9 % (42-78); TOTAL CELLS COUNTED % (AUTO) 100 %; WHITE BLOOD COUNT 9.6 10^3/uL (4.0-10.5)
[2020-02-26 10:42] LABS: PROTHROMBIN TIME 13.2 SEC (11.4-15.4)
[2020-02-26 10:43] LABS: PARTIAL THROMBOPLASTIN TIME 29.8 SEC (23.5-35.8)
[2020-02-26 10:50] LABS: ALBUMIN 4.3 g/dL (3.5-5.0); ALKALINE PHOSPHATASE 103 U/L (38-126); ANION GAP 7 (5-19); ASPARTATE AMINO TRANSFERASE 21 U/L (14-36); BLOOD UREA NITROGEN 24 mg/dL (7-20); CALCIUM 10.9 mg/dL (8.4-10.2); CARBON DIOXIDE 30 mmol/L (22-30); CHLORIDE 102 mmol/L (98-107); CREATINE KINASE 113 U/L (30-135); GLUCOSE 212 mg/dL (75-110); POTASSIUM 3.5 mmol/L (3.6-5.0); TOTAL PROTEIN 7.8 g/dL (6.3-8.2)
--- NOTE | 2020-02-26 10:54 | RADIOLOGY REPORT (SQ) ---
EXAM DESCRIPTION: CT HEAD WITHOUT IMAGES COMPLETED DATE/TIME: 02/26/2020 10:03 am REASON FOR STUDY: accidental fall COMPARISON: CT brain 06/09/2017, 07/31/2013 TECHNIQUE: Axial images acquired through the brain without intravenous contrast. Images reviewed wi th bone, brain and subdural windows. Additional sagittal and coronal reconstructions were generated. Images stored on PACS. All CT scanners at this facility use dose modulation, iterative reconstruction, and/or weight based d osing when appropriate to reduce radiation dose to as low as reasonably achievable (ALARA). [facility]: Dose Right [facility]: CareDose [facility]: Dose Right [facility]: Teradose 4D [facility]: [employer] RADIATION DOSE: CT Rad equipment meets quality standard of care and radiation dose reduction techniq ues were employed. CTDIvol: 53.2 mGy. DLP: 1124 mGy-cm. mGy. LIMITATIONS: None. FINDINGS: VENTRICLES: Normal size and contour. CEREBRUM: No masses. No hemorrhage. No midline shift. No evidence for acute infarction. Normal gra y/white matter differentiation. Mild bifrontal and biparietal low attenuation from chronic small ves valeri ischemic change. CEREBELLUM: No masses. No hemorrhage. No alteration of density. No evidence for acute infarction. EXTRAAXIAL SPACES: No fluid collections. No masses. ORBITS AND GLOBE: No intra- or extraconal masses. Normal contour of globe without masses. CALVARIUM: No fracture. PARANASAL SINUSES: No fluid or mucosal thickening. SOFT TISSUES: No mass or hematoma. OTHER: No other significant finding. IMPRESSION: No acute findings EVIDENCE OF ACUTE STROKE: NO. COMMENT: Quality ID # [id number]: Final reports with documentation of one or more dose reduction techniques (e.g., Automated exposure control, adjustment of the mA and/or kV according to patient size, use of iterative reconstruction technique) TECHNICAL DOCUMENTATION: JOB ID: [id number] 2010 [employer]- All Rights Reserved Reading location - IP/workstation name: [email or web address]
--- NOTE | 2020-02-26 10:57 | RADIOLOGY REPORT (SQ) ---
EXAM DESCRIPTION: CHEST SINGLE VIEW IMAGES COMPLETED DATE/TIME: 02/26/2020 10:18 am REASON FOR STUDY: accidental fall COMPARISON: AP chest 08/02/2018 EXAM PARAMETERS: NUMBER OF VIEWS: One view. TECHNIQUE: Single frontal radiographic view of the chest acquired. RADIATION DOSE: NA LIMITATIONS: None. FINDINGS: LUNGS AND PLEURA: No opacities, masses or pneumothorax. No pleural effusion. MEDIASTINUM AND HILAR STRUCTURES: No masses. Contour normal. HEART AND VASCULAR STRUCTURES: Heart normal in size. Normal vasculature. BONES: No acute findings. HARDWARE: None in the chest. OTHER: No other significant finding. IMPRESSION: NO ACUTE RADIOGRAPHIC FINDING IN THE CHEST. TECHNICAL DOCUMENTATION: JOB ID: [id number] 2010 [employer]- All Rights Reserved Reading location - IP/workstation name: [email or web address]
--- NOTE | 2020-02-26 10:57 | RADIOLOGY REPORT (SQ) ---
EXAM DESCRIPTION: CT CERVICAL SPINE WITHOUT IMAGES COMPLETED DATE/TIME: 02/26/2020 10:03 am REASON FOR STUDY: pain COMPARISON: None. TECHNIQUE: Axial images acquired through the cervical spine without intravenous contrast. Images re viewed with lung, soft tissue and bone windows. Reconstructed coronal and sagittal MPR images review ed. Images stored on PACS. All CT scanners at this facility use dose modulation, iterative reconstruction, and/or weight based d osing when appropriate to reduce radiation dose to as low as reasonably achievable (ALARA). [facility]: Dose Right [facility]: CareDose [facility]: Dose Right [facility]: Teradose 4D [facility]: [employer] RADIATION DOSE: CT Rad equipment meets quality standard of care and radiation dose reduction techniq ues were employed. CTDIvol: 27.0 mGy. DLP: 528 mGy-cm. mGy. LIMITATIONS: None. FINDINGS: ALIGNMENT: Anatomic. MINERALIZATION: Normal. VERTEBRAL BODIES: No fractures or dislocation. DISCS: No significant disc disease. FACETS, LATERAL MASSES, POSTERIOR ELEMENTS: No fractures. No dislocation. No acute findings. HARDWARE: None in the spine. VISUALIZED RIBS: No fractures. LUNG APICES AND SOFT TISSUES: Diffuse thyromegaly OTHER: No other significant finding. IMPRESSION: NO ACUTE OR SIGNIFICANT FINDINGS IN THE CERVICAL SPINE. TECHNICAL DOCUMENTATION: JOB ID: [id number] Quality ID # [id number]: Final reports with documentation of one or more dose reduction techniques (e.g., Au tomated exposure control, adjustment of the mA and/or kV according to patient size, use of iterative reconstruction technique) 2010 [employer]- All Rights Reserved Reading location - IP/workstation name: [email or web address]
--- NOTE | 2020-02-26 10:59 | RADIOLOGY REPORT (SQ) ---
EXAM DESCRIPTION: SHOULDER LEFT 2 OR MORE VIEWS IMAGES COMPLETED DATE/TIME: 02/26/2020 10:18 am REASON FOR STUDY: fall/pain COMPARISON: Chest films same date NUMBER OF VIEWS: Three views. TECHNIQUE: Internal rotation, external rotation, and Y view images acquired of the left shoulder. LIMITATIONS: None. FINDINGS: MINERALIZATION: Normal. BONES: No acute fracture. No worrisome bone lesions. JOINTS: Glenohumeral joint alignment is normal. No widening at the joint. Mild AC joint bony spurri ng VISUALIZED LUNGS AND RIBS: No pneumothorax. No rib fracture. SOFT TISSUES: No radiopaque foreign body. OTHER: No other significant finding. IMPRESSION: No acute fracture or malalignment TECHNICAL DOCUMENTATION: JOB ID: [id number] 2010 [employer]- All Rights Reserved Reading location - IP/workstation name: [email or web address]
--- NOTE | 2020-02-26 10:59 | RADIOLOGY REPORT (SQ) ---
EXAM DESCRIPTION: ANKLE LEFT AP/LATERAL IMAGES COMPLETED DATE/TIME: 02/26/2020 10:19 am REASON FOR STUDY: fall/pain COMPARISON: None. NUMBER OF VIEWS: Two views. TECHNIQUE: AP and lateral radiographic images acquired of the left ankle. LIMITATIONS: Nonstandard radiographic positioning FINDINGS: MINERALIZATION: Normal. BONES: No acute fracture or dislocation. Small plantar and dorsal calcaneal spurs. JOINTS: No effusions. SOFT TISSUES: No soft tissue swelling. No foreign body. OTHER: No other significant finding. IMPRESSION: Limited negative study TECHNICAL DOCUMENTATION: JOB ID: [id number] 2010 [employer]- All Rights Reserved Reading location - IP/workstation name: [email or web address]
--- NOTE | 2020-02-26 11:00 | RADIOLOGY REPORT (SQ) ---
EXAM DESCRIPTION: TIBIA FIBULA LEFT IMAGES COMPLETED DATE/TIME: 02/26/2020 10:19 am REASON FOR STUDY: pain COMPARISON: None. NUMBER OF VIEWS: Two views. TECHNIQUE: Two radiographic images acquired of the left tibia and fibula to include the knee and ank le in at least one projection. LIMITATIONS: Nonstandard radiographic positioning FINDINGS: MINERALIZATION: Normal. BONES: No acute fracture or dislocation. No worrisome bone lesions. SOFT TISSUES: No obvious swelling or foreign body. OTHER: High-grade medial compartment joint space narrowing, left knee. IMPRESSION: Limited negative study TECHNICAL DOCUMENTATION: JOB ID: [id number] 2010 [employer]- All Rights Reserved Reading location - IP/workstation name: [email or web address]
[2020-02-26 11:02] LABS: NT PRO BNP 270 pg/mL (<125); TROPONIN I < 0.012 ng/mL
--- NOTE | 2020-02-26 11:08 | RADIOLOGY REPORT (SQ) ---
EXAM DESCRIPTION: FEMUR LEFT IMAGES COMPLETED DATE/TIME: 02/26/2020 10:19 am REASON FOR STUDY: fall/pain COMPARISON: None. NUMBER OF VIEWS: Two views. TECHNIQUE: Two radiographic images acquired of the left femur to include hip and knee in at least on e projection. LIMITATIONS: Nonstandard radiographic positioning, left hemipelvis not entirely included in the fiel d of view FINDINGS: MINERALIZATION: Normal. BONES: No acute fracture. No worrisome bone lesions. SOFT TISSUES: No obvious swelling or foreign body. OTHER: Significant medial compartment left knee joint space narrowing. IMPRESSION: No left femur fracture. Very limited view of the pelvis, nondiagnostic TECHNICAL DOCUMENTATION: JOB ID: [id number] 2010 [employer]- All Rights Reserved Reading location - IP/workstation name: [email or web address]
--- NOTE | 2020-02-26 11:10 | RADIOLOGY REPORT (SQ) ---
EXAM DESCRIPTION: HIP LEFT AP/LATERAL IMAGES COMPLETED DATE/TIME: 02/26/2020 10:19 am REASON FOR STUDY: fall/pain COMPARISON: Left femur two views same date NUMBER OF VIEWS: Two views. TECHNIQUE: AP pelvis and additional frog-leg view of the left hip. LIMITATIONS: Rotated toward the JORDANIAN position FINDINGS: MINERALIZATION: Normal. LEFT HIP: No fracture or dislocation. Mild joint space narrowing and bony spurring. RIGHT HIP: No fracture or dislocation. Mild joint space narrowing and bony spurring. PUBIS AND ISCHIUM: No fracture. Prominent bony spurring along the ischial tuberosities. PELVIS: No fracture. Mild bilateral SI joint sclerosis SACRUM: No fracture or dislocation. No worrisome bone lesions. SOFT TISSUES: No findings. OTHER: No other significant finding. IMPRESSION: No acute displaced fracture TECHNICAL DOCUMENTATION: JOB ID: [id number] 2010 [employer]- All Rights Reserved Reading location - IP/workstation name: [email or web address]
--- NOTE | 2020-02-26 11:13 | RADIOLOGY REPORT (SQ) ---
EXAM DESCRIPTION: KNEE LEFT 4 VIEW IMAGES COMPLETED DATE/TIME: 02/26/2020 10:19 am REASON FOR STUDY: pain COMPARISON: Left femur films same date, left tib-fib films same date NUMBER OF VIEWS: Four views. TECHNIQUE: AP, lateral, and both oblique radiographic images acquired of the left knee. LIMITATIONS: Nonstandard radiographic positioning FINDINGS: MINERALIZATION: Normal. BONES: No acute fracture or dislocation. No worrisome bone lesions. JOINT: No suprapatellar knee joint effusion. High-grade medial compartment joint space narrowing SOFT TISSUES: No soft tissue swelling. No radio-opaque foreign body. OTHER: No other significant finding. IMPRESSION: No acute fracture or malalignment TECHNICAL DOCUMENTATION: JOB ID: [id number] 2010 [employer]- All Rights Reserved Reading location - IP/workstation name: [email or web address]
[2020-02-26 11:15] LABS: APPEARANCE,URINE SLIGHTLY-CLOUDY; BILIRUBIN,URINE NEGATIVE (NEGATIVE); COLOR,URINE YELLOW; GLUCOSE, URINE 150 mg/dL (NEGATIVE); KETONES,URINE TRACE mg/dL (NEGATIVE); LEUKOCYTE ESTERASE,URINE NEGATIVE (NEGATIVE); NITRITE,URINE NEGATIVE (NEGATIVE); PROTEIN,URINE 100 mg/dL (NEGATIVE); URINE SPECIFIC GRAVITY 1.019; UROBILINOGEN,URINE NEGATIVE mg/dL (<2.0)
[2020-02-26 11:29] LABS: URINE AMPHETAMINES SCREEN NEGATIVE; URINE BARBITURATES SCREEN NEGATIVE; URINE BENZODIAZEPINES SCREEN NEGATIVE; URINE COCAINE SCREEN NEGATIVE; URINE MARIJUANA (THC) SCREEN NEGATIVE; URINE METHADONE SCREEN NEGATIVE; URINE PHENCYCLIDINE SCREEN NEGATIVE
--- NOTE | 2020-02-26 11:58 | EKG REPORT ---
SEVERITY:- BORDERLINE ECG - SINUS RHYTHM BORDERLINE T WAVE ABNORMALITIES : Confirmed by: Adarsh Daniel MD 26-Feb-2020 11:57:46
--- NOTE | 2020-02-26 14:22 | ER Document Report ---
Entered by LAMBERTO ELDRIDGE SCRIBE 02/26/20 0853 Acting as scribe for:MACARIO DALLAS MD ED General - General Chief Complaint: Fall Stated Complaint: FALL BODY PAIN Time Seen by Provider: 02/26/20 08:10 Primary Care Provider: ALON HUDSON MD [Primary Care Provider] - Follow up as needed Information source: Patient Notes: This 64 year old female patient presents to the emergency department today with complaints of pain in her left lower extremities. Patient states she had a mechanical fall x3 days ago at 4 am when getting out of bed. Patient states she uses a cane and it slipped causing her to fall. Patient states her daughter and grandchildren found her on the floor x12 hours after her fall. Patient states EMS were called and she refused to come to the hospital. Patient states she did not hit her head or lose consciousness, and denies nose bleeds. TRAVEL OUTSIDE OF THE [place] IN LAST 30 DAYS: No - Related Data Allergies/Adverse Reactions: lisinopril Adverse Reaction (Verified 05/24/19 23:55) Past Medical History - General Information source: Patient - Social History Smoking Status: Never Smoker Cigarette use (# per day): No Family History: CAD, CVA, DM, Hypertension Patient has homicidal ideation: No - Past Medical History Cardiac Medical History: Reports: Hx Hypercholesterolemia, Hx Hypertension EENT Medical History: Reports: Eyes - Bilateral glaucoma Endocrine Medical History: Reports: Hx Diabetes Mellitus Type 2 Past Surgical History: Reports: Hx Hysterectomy - Immunizations Hx Diphtheria, Pertussis, Tetanus Vaccination: Yes Review of Systems - Review of Systems Constitutional: No symptoms reported EENT: See HPI Cardiovascular: No symptoms reported Respiratory: No symptoms reported Gastrointestinal: No symptoms reported Genitourinary: No symptoms reported Female Genitourinary: No symptoms reported Musculoskeletal: See HPI, Other - Pain LLE Skin: No symptoms reported Hematologic/Lymphatic: No symptoms reported Neurological/Psychological: See HPI. denies: Lost consciousness -: Yes All other systems reviewed and negative Physical Exam - Vital signs Vitals: BP 189/84 H 02/26/20 08:08 - General General appearance: Appears well, Alert - HEENT Head: Normocephalic, Atraumatic Eyes: Normal Pupils: PERRL Sinus: Normal Nasal: Normal Pharynx: Normal Neck: Supple, Other - Tenderness with palpation to the left side of the neck. - Respiratory Respiratory status: No respiratory distress Chest status: Nontender Breath sounds: Normal Chest palpation: Normal - Cardiovascular Rhythm: Regular Heart sounds: Normal auscultation Murmur: No - Abdominal Inspection: Normal, Obese Distension: No distension Bowel sounds: Normal Tenderness: Nontender - Extremities General upper extremity: Normal inspection. No: Edema Notes: Tenderness with palpation to the left suprascapular muscle. Tenderness with palpation to the left lower extremities. Normal strength in left lower extremities. No edema, ecchymosis, or deformity of the LLE. - Neurological Neuro grossly intact: Yes Cognition: Normal Orientation: AAOx4 Speech: Normal Cranial nerves: Normal Cerebellar coordination: Normal Motor strength normal: LUE, RUE, LLE, RLE Additional motor exam normals: No: Pronator drift - Psychological Associated symptoms: Normal affect, Normal mood - Skin Skin Temperature: Warm Skin Moisture: Dry Skin Color: Normal Course - Re-evaluation Re-evalutation: 02/26/20 14:11 Patient resting comfortably in bed pending results at this time. - Vital Signs Vital signs: Temp Pulse Resp BP Pulse Ox 97.7 F 189/84 H 100 02/26/20 08:18 02/26/20 08:08 02/26/20 08:12 02/26/20 14:11 Vital signs shows blood pressure elevated. Patient has not taken her morning a.m. dose of medications as yet. - Laboratory Result Diagrams: 02/26/20 10:06 02/26/20 10:06 Laboratory results interpreted by me: 02/26/20 02/26/20 02/26/20 10:06 10:06 10:48 Potassium 3.5 L BUN 24 H Est GFR ( Amer) 58 L Est GFR (MDRD) Non-Af 48 L Glucose 212 H Calcium 10.9 H NT-Pro-B Natriuret Pep 270 H Urine Protein 100 H Urine Glucose (UA) 150 H Urine Ketones TRACE H Urine Blood SMALL H Blood sugars 212. BNP 270 ,troponin negative x2. - Diagnostic Test Radiology reviewed: Image reviewed, Reports reviewed Radiology results interpreted by me: 02/26/20 14:12 Patient had plain film x-rays of her chest, left shoulder, left hip, left knee left tib-fib left ankle left foot all x-rays did not show any acute process of any fractures or dislocation. CT scan of head showed no evidence for stroke or any trauma. CTs scan of cervical spine showed no acute fracture or mal alignment. - EKG Interpretation by Me Additional EKG results interpreted by me: 02/26/20 14:13 12-lead EKG shows a normal sinus rhythm rate of 72 borderline T wave abnormalities otherwise negative. Discharge - Discharge Clinical Impression: Accidental fall, Morbid obesity, Hypertension, Left knee sprain, Sprain of left shoulder Condition: Stable Disposition: HOME, SELF-CARE Instructions: Sprained Knee ([facility]), Ice & Elevation ([facility]) Additional Instructions: You accidentally fell as her left knee gave way as you were walking in your home using a cane support. As a result of your fall you have a sprained knee and ankle sprain left shoulder. Multiple x-rays were done including scans of your head and neck as well as skeletal series of your left lower leg from hip down to your foot as well as a left shoulder x-ray and a chest x-ray. We have not found any fractures or derangements of any of your joints. Therefore you are being discharged home after you finish taking your a.m. medications before you leave the department. And we expect you to do well taking the current medications you are already taking as you already are on some medications for pain. Follow-up with your primary care doctor as needed. Referrals: ALON HUDSON MD [Primary Care Provider] - Follow up as needed I personally performed the services described in the documentation, reviewed and edited the documentation which was dictated to the scribe in my presence, and it accurately records my words and actions.
== END 2020-02-26 14:55 | disposition home or self-care (01) ==
LOC: ER 08:03
DX: S83.92XA Sprain of unspecified site of left knee, initial encounter (principal); S43.402A Unspecified sprain of left shoulder joint, initial encounter; I10 Essential (primary) hypertension; M79.605 Pain in left leg; W19.XXXA Unspecified fall, initial encounter; E66.01 Morbid (severe) obesity due to excess calories; Z88.8 Allergy status to other drugs, medicaments and biological substances; E11.9 Type 2 diabetes mellitus without complications
CPT/HCPCS: 93005; 99284; 96361; 96374; 96375; 36415; 82550; 83605; 85025; 85610; 85730; 80053; 81001; 84484; 80307; 83880; 73600; 71045; 73552; 73502; 73564; 73030; 73590; 70450; 72125; 93010; J2270; J2405; J7030

== ENCOUNTER 2020-02-27 09:39 | Inpatient (IN) | payer MEDICARE ==
--- NOTE | 2020-02-27 10:37 | ER Document Report ---
ED General - General Chief Complaint: Abdominal Pain Stated Complaint: ABDOMINAL PAIN/CHANGE IN TASTE Time Seen by Provider: 02/27/20 10:36 TRAVEL OUTSIDE OF THE [place] IN LAST 30 DAYS: No - HPI Notes: 64-year-old female with a history of hypertension, hyperlipidemia, diabetes mellitus and obesity presents to emergency department today for complaints of abdominal pain related to a Trulicity shot that she received from the primary care office earlier this week. States that since that time she is had complaint of abdominal pain, dysuria, and diarrhea. Patient was seen yesterday in the emergency department for complaints of bilateral lower discomfort due to mechanical fall. Patient was evaluated and had a work-up which she was then sent home due to unremarkable findings. pt did have a CT of her head which was unremarkable. Denies fevers, chills, chest pain,palpitations, shortness of breath, dyspnea, nausea, vomiting, speech changes, LH, dizziness, syncope, headaches, wheezing, ST, URI, neck pain, weakness, bowel or bladder dysfunction, saddle anesthesia, numbness or tingling in bilateral upper or lower extremities equally, muscle paralysis, weakness in bilateral upper or lower extremities equally or rash. MEDICATIONS: I agree with the patient medications as charted by the RN. ALLERGIES: I agree with the allergies as charted by the RN. PAST MEDICAL HISTORY/PAST SURGICAL HISTORY: Reviewed and agree as charted by RN. SOCIAL HISTORY: Reviewed and agree as charted by RN. FAMILY HISTORY: No significant familial comorbid conditions directly related to patient complaint EXAM: Reviewed vital signs as charted by RN. REVIEW OF SYSTEMS:reviewed vital signs by RN CONSTITUTIONAL : Denies fever, chills, or sweats. Denies recent illness. EENT: Denies eye, ear, throat, or mouth pain or symptoms. Denies nasal or sinus congestion or discharge. Denies throat, tongue, or mouth swelling or difficulty swallowing. CARDIOVASCULAR: Denies chest pain. Denies palpitations or racing or irregular heart beat. Denies ankle edema. RESPIRATORY: Denies cough, cold, or chest congestion. Denies shortness of breath, difficulty breathing, or wheezing. GASTROINTESTINAL: reports abdominal pain. Denies abdominal distention. Denies nausea, vomiting, or diarrhea. Denies blood in vomitus, stools, or per rectum. Denies black, tarry stools. Denies constipation. GENITOURINARY: Denies difficulty urinating, painful urination, burning, frequency, blood in urine, or discharge. FEMALE GENITOURINARY: Denies vaginal bleeding, heavy or abnormal periods, irregular periods. Denies vaginal discharge or odor. MUSCULOSKELETAL: Denies back or neck pain or stiffness. Denies joint pain or swelling. SKIN: Denies rash, lesions or sores. HEMATOLOGIC : Denies easy bruising or bleeding. LYMPHATIC: Denies swollen, enlarged glands. NEUROLOGICAL: Denies confusion or altered mental status. Denies passing out or loss of consciousness. Denies dizziness or lightheadedness. Denies headache. Denies weakness or paralysis or loss of use of either side. Denies problems with gait or speech. Denies sensory loss, numbness, or tingling. Denies seizures. PSYCHIATRIC: Denies anxiety or stress. Denies depression, suicidal ideation, or homicidal ideation. ALL OTHER SYSTEMS REVIEWED AND NEGATIVE. PHYSICAL EXAMINATION: GENERAL: Well-appearing, well-nourished and in no acute distress. HEAD: Atraumatic, normocephalic. EYES: Pupils equal round and reactive to light, extraocular movements intact, conjunctiva are normal. ENT: Nares patent, oropharynx clear without exudates. Moist mucous membranes. NECK: Normal range of motion, supple without lymphadenopathy LUNGS: Breath sounds clear to auscultation bilaterally and equal. No wheezes rales or rhonchi. HEART: Regular rate and rhythm without murmurs ABDOMEN: Soft, nondistended abdomen. abdominal tenderness in RLQ, LLQ on palpation. No guarding, no rebound. No masses appreciated. Female : deferred Musculoskeletal: Normal range of motion, no pitting or edema. No cyanosis. NEUROLOGICAL: Cranial nerves grossly intact. Normal speech, normal gait. Normal sensory, motor exams PSYCH: confused. SKIN: Warm, Dry, normal turgor, no rashes or lesions noted. Dictation was performed using [employer] voice recognition software used - Related Data Allergies/Adverse Reactions: lisinopril Adverse Reaction (Verified 05/24/19 23:55) Home Medications: Trulicity, HCTZ, Losartan, Metoprolol Past Medical History - General Information source: Patient - Social History Smoking Status: Unknown if Ever Smoked Family History: CAD, CVA, DM, Hypertension Patient has homicidal ideation: No - Past Medical History Cardiac Medical History: Reports: Hx Hypercholesterolemia, Hx Hypertension Endocrine Medical History: Reports: Hx Diabetes Mellitus Type 2 Renal/ Medical History: Denies: Hx Peritoneal Dialysis Past Surgical History: Reports: Hx Hysterectomy - Immunizations Hx Diphtheria, Pertussis, Tetanus Vaccination: Yes Physical Exam - Vital signs Vitals: Temp Pulse BP Pulse Ox 98.7 F 83 154/106 H 96 02/27/20 09:55 02/27/20 09:55 02/27/20 09:55 02/27/20 09:55 Course - Re-evaluation Re-evalutation: 02/27/20 20:09 Afebrile slightly hypertensive in no distress. Patient's urinalysis does show nitrate positive leukoesterase, noted ketones and hematuria. CBC negative so ketosis or anemia, CMP does show hypokalemia of 3.3, potassium chloride given 10 mEq p.o. Negative for hepatic or renal dysfunction. Patient did get a CT abdomen pelvis with contrast, IV did infiltrate in her right arm, radiologist did call to notify. We did obtain an x-ray of her right humerus which does show infiltration. Discussed with patient that she is going to need to elevate her arm, apply heat with compress. Due to patient having a UTI, with confusion as well of having this infiltration in her right arm, discussed admission with hospitalist. Discussed pertinent laboratory, diagnostic laboratory findings with Dr. Taz bar, ER physician, who agreed that patient should be admitted. Patient did come and evaluate patient at bedside and felt that she should be admitted. Patient will be admitted to the medical service and put on telemetry. Patient was agreeable this plan of care and agree with plan of care. - Vital Signs Vital signs: Temp Pulse Resp BP Pulse Ox 98.7 F 83 154/106 H 96 02/27/20 10:03 02/27/20 18:38 02/27/20 09:55 02/27/20 09:55 - Laboratory Result Diagrams: 02/27/20 12:30 02/27/20 12:30 Laboratory results interpreted by me: 02/27/20 02/27/20 02/27/20 12:30 12:30 13:45 Lymph % (Auto) 11.7 L Seg Neutrophils % 80.9 H Potassium 3.3 L Glucose 215 H Urine Protein >=500 H Urine Glucose (UA) >=500 H Urine Ketones TRACE H Urine Blood SMALL H Urine Nitrite POSITIVE H Ur Leukocyte Esterase SMALL H Discharge - Discharge Clinical Impression: Extravasation injury, Encephalopathy UTI (urinary tract infection) Qualifiers: Urinary tract infection type: acute cystitis Hypertension Qualifiers: Hypertension type: essential hypertension Qualified Code(s): I10 - Essential (p rimary) hypertension Clinical Impression: (Ruled Out): Encephalitis Condition: Stable Disposition: ADMITTED INPATIENT Admitting Provider: Ismael (Hospitalist) Unit Admitted: Telemetry
[2020-02-27 12:41] LABS: ABSOLUTE EOSINOPHILS # (AUTO) 0.1 10^3/uL (0.0-0.6); ABSOLUTE LYMPHOCYTES (AUTO) 1.1 10^3/uL (0.5-4.7); ABSOLUTE MONOCYTES (AUTO) 0.6 10^3/uL (0.1-1.4); ABSOLUTE NEUT (AUTO) 7.8 10^3/uL (1.7-8.2); BASOPHILS % (AUTO) 0.4 % (0-2); EOSINOPHILS % (AUTO) 1.2 % (0-6); HEMATOCRIT 44.1 % (36.0-47.0); HEMOGLOBIN 14.6 g/dL (12.0-15.5); LYMPHOCYTES % (AUTO) 11.7 % (13-45); MEAN CORPUSCULAR HEMOGLOBIN 28.8 pg (27.0-33.4); MEAN CORPUSCULAR HGB CONC 33.2 g/dL (32.0-36.0); MEAN CORPUSCULAR VOLUME 87 fl (80-97); MONOCYTES % (AUTO) 5.8 % (3-13); PLATELET COUNT 295 10^3/uL (150-450); RED BLOOD COUNT 5.08 10^6/uL (3.72-5.28); RED CELL DISTRIBUTION WIDTH 13.6 % (11.5-14.0); SEGMENTED NEUTROPHILS % (AUTO) 80.9 % (42-78); TOTAL CELLS COUNTED % (AUTO) 100 %; WHITE BLOOD COUNT 9.7 10^3/uL (4.0-10.5)
[2020-02-27 13:07] LABS: ALKALINE PHOSPHATASE 104 U/L (38-126); ANION GAP 7 (5-19); ASPARTATE AMINO TRANSFERASE 21 U/L (14-36); BILIRUBIN,TOTAL 0.9 mg/dL (0.2-1.3); BLOOD UREA NITROGEN 18 mg/dL (7-20); CARBON DIOXIDE 30 mmol/L (22-30); CHLORIDE 103 mmol/L (98-107); GLUCOSE 215 mg/dL (75-110); POTASSIUM 3.3 mmol/L (3.6-5.0); TOTAL PROTEIN 7.5 g/dL (6.3-8.2)
[2020-02-27] MEDS ORDERED: POTASSIUM CHLORIDE 10 MEQ TABLET.ER PO ONE (13:23)
--- NOTE | 2020-02-27 13:52 | RADIOLOGY REPORT (SQ) ---
EXAM DESCRIPTION: CT ABD/PELVIS WITH IV ONLY IMAGES COMPLETED DATE/TIME: 02/27/2020 1:29 pm REASON FOR STUDY: Lower abd pain COMPARISON: None. TECHNIQUE: CT scan of the abdomen and pelvis performed without intravenous or oral contrast. Images reviewed with lung, soft tissue, and bone windows. Reconstructed coronal and sagittal MPR images revi ewed. All images stored on PACS. All CT scanners at this facility use dose modulation, iterative reconstruction, and/or weight based d osing when appropriate to reduce radiation dose to as low as reasonably achievable (ALARA). [facility]: Dose Right [facility]: CareDose [facility]: Dose Right [facility]: Teradose 4D [facility]: Smart [employer] RADIATION DOSE: CT Rad equipment meets quality standard of care and radiation dose reduction techniq ues were employed. CTDIvol: 19.2 - 21.1 mGy. DLP: 2348 mGy-cm.mGy. LIMITATIONS: Patient positioning results in beam hardening artifact, partially obscuring the abdomin al structures. No intravenous contrast is demonstrated on this examination. CONTRAST TYPE AND DOSE: 79 mL Omnipaque 350- low osmolar. FINDINGS: LOWER CHEST: No significant findings. No nodules or infiltrates. NON-CONTRASTED LIVER, SPLEEN, ADRENALS: Evaluation limited by lack of IV contrast. No identified sign ificant masses. PANCREAS: No masses. No peripancreatic inflammatory changes. GALLBLADDER: No identified stones by CT criteria. No inflammatory changes to suggest cholecystitis. RIGHT KIDNEY AND URETER: No suspicious masses. Assessment limited by lack of IV contrast. No signif icant calcifications. No hydronephrosis or hydroureter. LEFT KIDNEY AND URETER: No suspicious masses. Assessment limited by lack of IV contrast. No signifi cant calcifications. No hydronephrosis or hydroureter. AORTA AND RETROPERITONEUM: No aneurysm. No retroperitoneal masses or adenopathy. BOWEL AND PERITONEAL CAVITY: No obvious masses or inflammatory changes. No free fluid. APPENDIX: Normal. PELVIS, BLADDER, AND ABDOMINAL WALL:No abnormal masses. No free fluid. Bladder normal. BONES: Degenerative changes are seen of the hips and spine. OTHER: No other significant finding. IMPRESSION: 1. No evidence of acute intra-abdominal infectious/inflammatory process 2. No intravenous contrast is demonstrated on this examination. Evaluation of college or university department head imaging is unre markable. Recommend radiographic evaluation of the injection site. COMMENT: Quality ID # [id number]: Final reports with documentation of one or more dose reduction techniques (e.g., Automated exposure control, adjustment of the mA and/or kV according to patient size, use of iterative reconstruction technique) TECHNICAL DOCUMENTATION: JOB ID: [id number] 2010 [employer]- All Rights Reserved RENAL FUNCTION: BUN 24; creatinine 1.14 Reading location - IP/workstation name: [email or web address]
[2020-02-27] MEDS ORDERED: NORMAL SALINE 1000 ML 1,000 ML IV ONE (14:07)
[2020-02-27 14:11] LABS: APPEARANCE,URINE CLOUDY; BILIRUBIN,URINE NEGATIVE (NEGATIVE); COLOR,URINE AMBER; GLUCOSE, URINE >=500 mg/dL (NEGATIVE); KETONES,URINE TRACE mg/dL (NEGATIVE); LEUKOCYTE ESTERASE,URINE SMALL (NEGATIVE); NITRITE,URINE POSITIVE (NEGATIVE); PROTEIN,URINE >=500 mg/dL (NEGATIVE); UROBILINOGEN,URINE NEGATIVE mg/dL (<2.0)
--- NOTE | 2020-02-27 14:28 | RADIOLOGY REPORT (SQ) ---
EXAM DESCRIPTION: HUMERUS LEFT IMAGES COMPLETED DATE/TIME: 02/27/2020 2:01 pm REASON FOR STUDY: look for extravasation COMPARISON: CT abdomen and pelvis 02/27/2020 NUMBER OF VIEWS: Two views. TECHNIQUE: Two radiographic images were acquired of the left humerus to include elbow and shoulder i n at least one projection. LIMITATIONS: None. FINDINGS: MINERALIZATION: Normal. BONES: No acute fracture or dislocation. No worrisome bone lesions. SOFT TISSUES: Imaging confirms suspected intravenous contrast extravasation. OTHER: No other significant finding. IMPRESSION: Intravenous contrast extravasation. Findings were discussed with the treating physician, Dr. Georges, at [address] protoco l reveals 99.6 mL Omnipaque 350 administered. TECHNICAL DOCUMENTATION: JOB ID: [id number] 2010 [employer]- All Rights Reserved Reading location - IP/workstation name: [email or web address]
[2020-02-27] MEDS ORDERED: ONDANSETRON HCL INJ/PF 4 MG/2 ML SDV IV PRN (15:57)
[2020-02-27] MEDS ORDERED: ALBUTEROL SULFATE 0.083% NEB 2.5 MG/3 ML AMPUL NEB PRN (16:00)
[2020-02-27 16:31] LABS: URINE AMPHETAMINES SCREEN NEGATIVE; URINE BARBITURATES SCREEN NEGATIVE; URINE BENZODIAZEPINES SCREEN NEGATIVE; URINE COCAINE SCREEN NEGATIVE; URINE MARIJUANA (THC) SCREEN NEGATIVE; URINE METHADONE SCREEN NEGATIVE; URINE PHENCYCLIDINE SCREEN NEGATIVE
[2020-02-27] MEDS: CEFTRIAXONE 1 GM/D5W RTU 1 GM/50 ML RTUPB IV SCH (17:14)
--- NOTE | 2020-02-27 19:06 | PDOC H&P ---
History of Present Illness Admission Date/PCP: 02/27/20 15:43 Patient complains of: abdomina pain History of Present Illness: DOUGLAS PERRY is a 64 year old female with a past medical history significant for hypertension, hyperlipidemia, diabetes mellitus, and obesity who presented to the emergency department today with a complaint superficial abdominal discom fort; patient claims this is related to a Trulicity injection she received at her PCPs office earlier this week. Of note, patient was seen in the emergency department yesterday with complaint of bilateral lower extremity discomfort after mechanical fall at home. She reported that she has been approximately 12 hours on the floor after the fall prior to family finding her notifying EMS. Laboratory evaluation yesterday was benign. Today, patient is found to have hypertensive urgency (BP 154/106) otherwise normal vital signs, unremarkable CBC, mild hypokalemia (K3.3), and urinalysis suggestive of UTI. UDS is positive for opiates. CT ABD/Pelvis was negative for acute intra-abdominal findings. There was no intravenous contrast noted on exam; appears that her IV infiltrated her contrast dye extravasated into her left upper arm. The patient was referred to the hospitalist service for observation of her extremity due to concern that the patient displayed poor awareness of her medical needs; ED provider primarily is concerned about the patient's mentation and ability to care for herself independently. Upon my exam, the patient was clearly encephalopathic; will admit for AMS in setting of UTI and frequent falls. Past Medical History Cardiac Medical History: Reports: Hyperlipidema, Hypertension Pulmonary Medical History: Reports: None EENT Medical History: Reports: None Neurological Medical History: Reports: None Endocrine Medical History: Reports: Diabetes Mellitus Type 2, Obesity Renal/ Medical History: Reports: None GI Medical History: Reports: None, Gastroesophageal Reflux Disease Musculoskeltal Medical History: Reports: None Skin Medical History: Reports: None Psychiatric Medical History: Reports: None Traumatic Medical History: Reports: None Hematology: Reports: None Infectious Medical History: Reports: None Past Surgical History Past Surgical History: Reports: Hysterectomy Social History Information Source: Patient, [facility] Records Lives with: Alone Smoking Status: Unknown if Ever Smoked Frequency of Alcohol Use: Rare Hx Recreational Drug Use: No Hx Prescription Drug Abuse: No - Advance Directive Resuscitation Status: Full Code Family History Family History: CAD, CVA, DM, Hypertension Parental Family History Reviewed: Yes Children Family History Reviewed: Yes Sibling(s) Family History Reviewed.: Yes Medication/Allergy Home Medications: Atorvastatin Calcium [Lipitor 10 mg Tablet] 10 mg PO DAILY 06/09/17 Ergocalciferol (Vitamin D2) [Vitamin D2] 50,000 unit PO WILSON@1000 06/09/17 Amlodipine Besylate [Norvasc 10 mg Tablet] 10 mg PO DAILY #30 tablet 06/10/17 Glyburide [Diabeta 5 mg Tablet] 5 mg PO BIDBS #60 tablet 06/10/17 Hydrochlorothiazide [Hydrodiuril 25 mg Tablet] 25 mg PO QAM #30 tablet 06/10/17 Losartan Potassium 100 mg PO DAILY #30 tablet 06/10/17 Metformin HCl [Glucophage] 1,000 mg PO BID #60 tablet 06/10/17 Brimonidine Tartrate [Alphagan 0.2% Oph Soln 5 ml] 1 drop OU BID 02/27/20 Clonidine HCl [Catapres 0.1 mg Tablet] 0.1 mg PO QID 02/27/20 Dulaglutide [Trulicity] 0.75 mg SUBCUT FR@1000 02/27/20 Gabapentin 300 mg PO Q12 02/27/20 Ibuprofen [Motrin 800 mg Tablet] 80 mg PO BIDP PRN 02/27/20 Latanoprost [Xalatan 0.005% Oph Soln 2.5 ml] 1 drop OU QHS 02/27/20 Loratadine [Claritin 10 mg Tablet] 10 mg PO DAILY 02/27/20 Metoprolol Tartrate [Lopressor 100 mg Tablet] 100 mg PO DAILY 02/27/20 Omeprazole 40 mg PO DAILY 02/27/20 Allergies/Adverse Reactions: lisinopril Adverse Reaction (Verified 05/24/19 23:55) Review of Systems Constitutional: ABSENT: chills, fever(s), headache(s), weight gain, weight loss Eyes: ABSENT: visual disturbances Ears: ABSENT: hearing changes Cardiovascular: ABSENT: chest pain, dyspnea on exertion, edema, orthropnea, palpitations Respiratory: ABSENT: cough, hemoptysis Gastrointestinal: PRESENT: abdominal pain, constipation, diarrhea. ABSENT: hematemesis, hematochezia, nausea, vomiting Genitourinary: PRESENT: difficulty urinating, dysuria. ABSENT: hematuria Musculoskeletal: PRESENT: muscle weakness. ABSENT: joint swelling Integumentary: ABSENT: rash, wounds Neurological: PRESENT: confusion, frequent falls. ABSENT: abnormal gait, abnormal speech, dizziness, focal weakness, syncope Psychiatric: ABSENT: anxiety, depression, homidical ideation, suicidal ideation Endocrine: ABSENT: cold intolerance, heat intolerance, polydipsia, polyuria Hematologic/Lymphatic: ABSENT: easy bleeding, easy bruising Physical Exam Vital Signs: Temp Pulse Resp BP Pulse Ox 98.7 F 83 154/106 H 96 02/27/20 10:03 02/27/20 09:55 02/27/20 09:55 02/27/20 09:55 Intake & Output 02/26/20 02/27/20 02/28/20 06:59 06:59 06:59 Weight 124 kg General appearance: PRESENT: no acute distress, morbidly obese, well-developed, well-nourished Head exam: PRESENT: atraumatic, normocephalic Eye exam: PRESENT: conjunctiva pink, EOMI, PERRLA. ABSENT: scleral icterus Mouth exam: PRESENT: moist, tongue midline Respiratory exam: PRESENT: clear to auscultation renu, symmetrical, unlabored. ABSENT: rales, rhonchi, wheezes Cardiovascular exam: PRESENT: RRR, +S1, +S2. ABSENT: diastolic murmur, rubs, systolic murmur Pulses: PRESENT: normal dorsalis pedis pul Vascular exam: PRESENT: normal capillary refill GI/Abdominal exam: PRESENT: normal bowel sounds, soft, tenderness - lower abd/suprapubic; patient state "superficial/skin" discomfort. ABSENT: distended, guarding, mass, organolmegaly, rebound Rectal exam: PRESENT: deferred Extremities exam: PRESENT: full ROM. ABSENT: calf tenderness, clubbing, pedal edema Neurological exam: PRESENT: alert, awake, oriented to person, oriented to place, oriented to time, oriented to situation, CN II-XII grossly intact, other - Intermittent confusion; poor higher level/abstract thinking. ABSENT: motor sensory deficit Psychiatric exam: PRESENT: appropriate affect, normal mood. ABSENT: homicidal ideation, suicidal ideation Skin exam: PRESENT: dry, intact, warm. ABSENT: cyanosis, rash Results Laboratory Results: 02/27/20 12:30 02/27/20 12:30 02/27/20 02/27/20 02/27/20 12:30 12:30 13:45 WBC 9.7 RBC 5.08 Hgb 14.6 Hct 44.1 MCV 87 MCH 28.8 MCHC 33.2 RDW 13.6 Plt Count 295 Seg Neutrophils % 80.9 H Sodium 139.7 Potassium 3.3 L Chloride 103 Carbon Dioxide 30 Anion Gap 7 BUN 18 Creatinine 0.92 Est GFR ( Amer) > 60 Glucose 215 H Calcium 10.0 Total Bilirubin 0.9 AST 21 Alkaline Phosphatase 104 Total Protein 7.5 Albumin 4.0 Lipase 55.1 Urine Color DILLAN Urine Appearance CLOUDY Urine pH 5.0 Ur Specific [place] 1.020 Urine Protein >=500 H Urine Glucose (UA) >=500 H Urine Ketones TRACE H Urine Blood SMALL H Urine Nitrite POSITIVE H Ur Leukocyte Esterase SMALL H Urine WBC (Auto) 31 Urine RBC (Auto) 5 Impressions: Abdomen/Pelvis CT 02/27/20 11:41 IMPRESSION: 1. No evidence of acute intra-abdominal infectious/inflammatory process 2. No intravenous contrast is demonstrated on this examination. Evaluation of hogshead inspector imaging is unremarkable. Recommend radiographic evaluation of the injection site. Humerus X-Ray 02/27/20 13:45 IMPRESSION: Intravenous contrast extravasation. Findings were discussed with the treating physician, Dr. Georges, at [address] protocol reveals 99.6 mL Omnipaque 350 administered. Assessment and Plan - Diagnosis (1) Encephalopathy Is this a current diagnosis for this admission?: Yes Plan: Unclear etiology. Perhaps related to urinary tract infection. UDS does show opiates; review of [place] controlled substance database does not reveal recent prescriptions. Admit to the medical floor on continuous telemetry. Supportive care. Gentle IV fluids. Treatment of UTI as below. Avoid narcotics and other sedating medications. Fall precautions. Discharge planning consulted. (2) UTI (urinary tract infection) Qualifiers: Urinary tract infection type: acute cystitis Is this a current diagnosis for this admission?: Yes Plan: Blood and urine cultures pending. She is empirically placed on IV Rocephin. Gentle IV fluids. Encourage p.o. fluids. (3) Extravasation injury Is this a current diagnosis for this admission?: Yes Plan: To LUE r/t CT contrast dye. Keep arm elevated Heating pad for comfort (4) Hypertension Qualifiers: Hypertension type: essential hypertension Qualified Code(s): I10 - Essential (primary) hypertension Is this a current diagnosis for this admission?: Yes Plan: Continue home medication regiment of amlodipine, Clonidine, metoprolol, losartan, and hydrochlorothiazide. IV hydralazine as needed for blood pressure control. Cardiac diet. (5) Diabetes mellitus Qualifiers: Diabetes mellitus type: type 2 Diabetes mellitus [facility] insulin use: without terminal press operator use Diabetes mellitus complication status: with unspecified complications Is this a current diagnosis for this admission?: Yes Plan: Holding oral medications while admitted. We will check A1c with a.m. lab work. Patient is placed on a consistent carb diet. Accu-Cheks before meals and at bedtime with Humalog for sliding scale coverage. Hypoglycemia protocol in place. Registered dietitian senior health educator consulted. (6) Frequent falls Is this a current diagnosis for this admission?: Yes Plan: Physical therapy consultation Fall precautions - Time Time Spent with patient: 35 or more minutes Medications reviewed and adjusted accordingly: Yes Anticipated discharge: Home with Homehealth Within: within 48 hours
[2020-02-27] MEDS: MAG HYDROX/AL HYDROX/SIMETH SUSP 30 ML UDCUP PO PRN (21:53)
[2020-02-27] MEDS: LOSARTAN POTASSIUM 50 MG TABLET PO SCH (21:53)
[2020-02-27] MEDS: CLONIDINE HCL 0.1 MG TABLET PO SCH (21:54)
[2020-02-27] MEDS: HEPARIN SOD (PORCINE) 5,000 UNIT/ML 1 ML VIAL SUBCUT SCH (21:54)
[2020-02-27] MEDS: GABAPENTIN 300 MG CAPSULE PO SCH (21:54)
[2020-02-27] MEDS: NORMAL SALINE 1000 ML 1,000 ML IV PRN (21:54)
[2020-02-28] MEDS: HEPARIN SOD (PORCINE) 5,000 UNIT/ML 1 ML VIAL SUBCUT SCH ×3 (06:06→22:02)
[2020-02-28] MEDS: NORMAL SALINE 1000 ML 1,000 ML IV PRN ×3 (06:06→23:04)
[2020-02-28] MEDS: PANTOPRAZOLE SODIUM 40 MG TABLET.DR PO SCH (06:06)
[2020-02-28 06:30] LABS: HEMATOCRIT 38.2 % (36.0-47.0); HEMOGLOBIN 12.7 g/dL (12.0-15.5); MEAN CORPUSCULAR HEMOGLOBIN 28.6 pg (27.0-33.4); MEAN CORPUSCULAR HGB CONC 33.1 g/dL (32.0-36.0); MEAN CORPUSCULAR VOLUME 87 fl (80-97); PLATELET COUNT 314 10^3/uL (150-450); RED BLOOD COUNT 4.42 10^6/uL (3.72-5.28); RED CELL DISTRIBUTION WIDTH 13.5 % (11.5-14.0); WHITE BLOOD COUNT 11.4 10^3/uL (4.0-10.5)
[2020-02-28 06:59] LABS: ANION GAP 6 (5-19); BLOOD UREA NITROGEN 17 mg/dL (7-20); CALCIUM 9.6 mg/dL (8.4-10.2); CARBON DIOXIDE 27 mmol/L (22-30); CHLORIDE 107 mmol/L (98-107); GLUCOSE 186 mg/dL (75-110); POTASSIUM 3.4 mmol/L (3.6-5.0)
[2020-02-28] MEDS: HYDROCHLOROTHIAZIDE 25 MG TABLET PO SCH (08:13)
[2020-02-28] MEDS ORDERED: POTASSIUM CHLORIDE 10 MEQ TABLET.ER PO ONE ×2 (09:00→11:04)
[2020-02-28] MEDS ORDERED: GLUCAGON,HUMAN RECOMB 1 MG INJ SUBCUT PRN (09:47)
[2020-02-28] MEDS ORDERED: DEXTROSE 40% GEL 15 GM TUBE PO PRN ×2 (09:47)
[2020-02-28] MEDS ORDERED: DEXTROSE 50%-WATER 25 GM/50 ML DISP.SYRIN IV PRN ×2 (09:47)
[2020-02-28] MEDS ORDERED: ATORVASTATIN CALCIUM 10 MG TABLET PO SCH ×2 (10:00)
[2020-02-28] MEDS ORDERED: (PENDING PHARMACY ID) (Losartan Potassium [Losartan Potassium] 100 MG) PO SCH (10:00)
[2020-02-28] MEDS: CLONIDINE HCL 0.1 MG TABLET PO SCH ×4 (11:03→22:02)
[2020-02-28] MEDS: DOCUSATE SODIUM 100 MG CAPSULE PO SCH (11:04)
[2020-02-28] MEDS: LOSARTAN POTASSIUM 50 MG TABLET PO SCH (11:05)
[2020-02-28] MEDS: GABAPENTIN 300 MG CAPSULE PO SCH ×2 (11:05→22:02)
[2020-02-28] MEDS: ASPIRIN 325 MG TABLET, ENT COATED PO SCH (11:05)
[2020-02-28] MEDS: METOPROLOL TARTRATE 100 MG TABLET PO SCH (11:05)
[2020-02-28] MEDS: AMLODIPINE BESYLATE 10 MG TABLET PO SCH (11:06)
[2020-02-28] MEDS: LORATADINE 10 MG TABLET PO SCH (11:06)
[2020-02-28] MEDS: CEFTRIAXONE 1 GM/D5W RTU 1 GM/50 ML RTUPB IV SCH (12:48)
--- NOTE | 2020-02-28 13:35 | EKG REPORT ---
SEVERITY:- NORMAL ECG - SINUS RHYTHM : Confirmed by: Adarsh Daniel MD 28-Feb-2020 13:35:03
--- NOTE | 2020-02-28 16:04 | RADIOLOGY REPORT (SQ) ---
EXAM DESCRIPTION: CAROTID DOPPLER IMAGES COMPLETED DATE/TIME: 02/28/2020 3:05 pm REASON FOR STUDY: AMS, left side weakness COMPARISON: CT cervical spine 02/27/2020 CT brain 02/26/2020, 06/09/2017 TECHNIQUE: Grayscale ultrasound, Doppler velocity and spectra, and color Doppler images acquired of the extra-cranial carotid and vertebral arteries. Images stored on PACS. LIMITATIONS: None. FINDINGS: RIGHT CAROTID CCA Velocities: Within normal limits. ICA Velocities Peak systolic 0.32 m/s. End diastolic 0.08 m/s. Proximal ICA/CCA peak systolic ratio normal. Spectra normal. No significant plaque. LEFT CAROTID CCA Velocities: Within normal limits. ICA Velocities Peak systolic 0.32 m/s. End diastolic 0.11 m/s. Proximal ICA/CCA peak systolic ratio normal. Spectra normal. No significant plaque. VERTEBRAL ARTERIES: Antegrade flow. Normal waveforms. SUBCLAVIAN ARTERIES: Not evaluated OTHER: No other significant finding. IMPRESSION: NO HEMODYNAMICALLY SIGNIFICANT STENOSIS. COMMENT: Quality ID #[id number]: Velocity criteria are extrapolated from the diameter data as defined by t he Society of Radiologists in Ultrasound Consensus Conference. Radiology 2003: 229; 340-346. TECHNICAL DOCUMENTATION: JOB ID: [id number] 2010 [employer]- All Rights Reserved Reading location - IP/workstation name: [email or web address]
[2020-02-28] MEDS ORDERED: LORAZEPAM INJ 2 MG/1 ML VIAL IV PRN (17:33)
--- NOTE | 2020-02-28 18:01 | PDOC PROGRESS REPORT ---
Subjective Progress Note for:: 02/28/20 Subjective:: DOUGLAS PERRY is a 64 year old female with a past medical history significant for hypertension, hyperlipidemia, diabetes mellitus, and obesity who was admitted 02/27/2020 with acute encephalopathy and UTI. Patient was seen on morning rounds. She was found resting in bed, comfortably, on room air. She is alert and oriented to self, place, 2019, President Obama, and situation "falls." However, she becomes confused and irritable throughout the rest of our conversation. Today she reports left upper and lower extremity weakness. ROS is limited r/t mentation. She does appear to be comfortable and is not noted to be in any acute distress. No concerns per nursing. Spoke with patient's daughter, Angi, by phone this afternoon. She reports that she and her sister noted increased confusion beginning Wednesday. And of at least 4 falls since Wednesday. The sister reported that her mom was doing odd things with confusion and agitation. Jacqui noted some slurred speech on Wednesday which prompted the follow-up ED visit. She reports a strong stroke history; both the patient sister and brother as a result of CVA. The patient has no prior history of CVA but does have uncontrolled diabetes and hypertension. Jacqui agrees with plan to provide sedating medication and reattempt MRI in the morning. Reason For Visit: ENCEPHALOPATHY,UTI Physical Exam Vital Signs: Temp Pulse Resp BP Pulse Ox 98.9 F 64 34 H 144/91 H 98 02/28/20 17:07 02/28/20 17:07 02/28/20 17:07 02/28/20 17:07 02/28/20 17:07 Intake & Output 02/27/20 02/28/20 02/29/20 06:59 06:59 06:59 Intake Total 2150 1046 Output Total 100 Balance 2049 1046 Weight 125 kg 125 kg General appearance: PRESENT: no acute distress, cooperative, morbidly obese, well-developed, well-nourished Head exam: PRESENT: atraumatic, normocephalic Eye exam: PRESENT: conjunctiva pink, EOMI, PERRLA. ABSENT: scleral icterus Mouth exam: PRESENT: moist, tongue midline Respiratory exam: PRESENT: clear to auscultation renu, symmetrical, unlabored. A BSENT: rales, rhonchi, wheezes Cardiovascular exam: PRESENT: RRR, +S1, +S2. ABSENT: diastolic murmur, rubs, systolic murmur Pulses: PRESENT: normal dorsalis pedis pul Vascular exam: PRESENT: normal capillary refill GI/Abdominal exam: PRESENT: normal bowel sounds, soft. ABSENT: distended, guarding, mass, organolmegaly, rebound, tenderness Rectal exam: PRESENT: deferred Extremities exam: PRESENT: tenderness - LLE; especially to knee. ABSENT: calf tenderness, clubbing, full ROM - LUE and LLE; unclear if r/t pain of if focal deficiet., pedal edema Neurological exam: PRESENT: alert, awake, oriented to person, oriented to place, oriented to situation, CN II-XII grossly intact, other - Intermittent confusion/agitation. Slightly slurred speech. Per daughter; significantly different from baseline.. ABSENT: oriented to time, motor sensory deficit Psychiatric exam: PRESENT: agitated, normal mood. ABSENT: homicidal ideation, suicidal ideation Skin exam: PRESENT: dry, intact, warm. ABSENT: cyanosis, rash Results Laboratory Results: 02/28/20 05:57 02/28/20 05:57 02/28/20 02/28/20 02/28/20 05:57 05:57 05:57 WBC 11.4 H RBC 4.42 Hgb 12.7 Hct 38.2 MCV 87 MCH 28.6 MCHC 33.1 RDW 13.5 Plt Count 314 Sodium 140.0 Potassium 3.4 L Chloride 107 Carbon Dioxide 27 Anion Gap 6 BUN 17 Creatinine 0.94 Est GFR ( Amer) > 60 Glucose 186 H Calcium 9.6 Magnesium 2.1 TSH 0.49 02/28/20 11:33 Troponin I < 0.012 Impressions: Abdomen/Pelvis CT 02/27/20 11:41 IMPRESSION: 1. No evidence of acute intra-abdominal infectious/inflammatory process 2. No intravenous contrast is demonstrated on this examination. Evaluation of belt loop machine operator imaging is unremarkable. Recommend radiographic evaluation of the injection site. Humerus X-Ray 02/27/20 13:45 IMPRESSION: Intravenous contrast extravasation. Findings were discussed with the treating physician, Dr. Georges, at [address] protocol reveals 99.6 mL Omnipaque 350 administered. Carotid Doppler Study 02/28/20 00:00 IMPRESSION: NO HEMODYNAMICALLY SIGNIFICANT STENOSIS. Assessment and Plan - Diagnosis (1) Encephalopathy Is this a current diagnosis for this admission?: Yes Plan: Unclear etiology. UTI/Dehydration vs TIA/CVA Perhaps related to urinary tract infection. UDS does show opiates; likely related to morphine provided during ED visit the day prior to admission Upgrade to IMCU on continuous telemetry. Supportive care. Gentle IV fluids. Treatment of UTI as below. TIA/CVA evaluation as below. Avoid narcotics and other sedating medications. Fall precautions. Discharge planning consulted. (2) UTI (urinary tract infection) Qualifiers: Urinary tract infection type: acute cystitis Is this a current diagnosis for this admission?: Yes Plan: Blood cultures have no growth to date. Urine culture shows gram-negative rods She is empirically placed on IV Rocephin. Gentle IV fluids. Encourage p.o. fluids. (3) Extravasation injury Is this a current diagnosis for this admission?: Yes Plan: To LUE r/t CT contrast dye. Keep arm elevated Heating pad for comfort (4) Hypertension Qualifiers: Hypertension type: essential hypertension Qualified Code(s): I10 - Essential (primary) hypertension Is this a current diagnosis for this admission?: Yes Plan: Continue home medication regiment of amlodipine, Clonidine, metoprolol, los ivan, and hydrochlorothiazide. IV hydralazine as needed for blood pressure control. Cardiac diet. (5) Diabetes mellitus Qualifiers: Diabetes mellitus type: type 2 Diabetes mellitus retirement insulin use: without middle or intermediate school principal use Diabetes mellitus complication status: with unspecified complications Is this a current diagnosis for this admission?: Yes Plan: A1c 8.4% Patient is placed on a consistent carb diet. Accu-Cheks before meals and at bedtime with Humalog for sliding scale coverage. Hypoglycemia protocol in place. Registered dietitian early childhood educator aide consulted. (6) Frequent falls Is this a current diagnosis for this admission?: Yes Plan: Physical therapy consultation Fall precautions (7) CVA (cerebral vascular accident) Qualifiers: CVA mechanism: unspecified Qualified Code(s): I63.9 - Cerebral infarction, unspecified Is this a current diagnosis for this admission?: Yes Plan: Concern for CVA given detailed hx provided by family today. Patient was noted to have increased confusion beginning on Wednesday with multiple falls. Potentially one episode of syncope/LOC. Patient was initially refusing to be seen in the emergency department. She was noted to have slurred speech on Wednesday. Patient was finally agreeable to the ED visit. Today with worsened Left side weakness and continued AMS. She had a very detailed/thorough work-up at that time including a negative head CT. Return to the emergency department the following day with nonspecific abdominal discomfort but clear encephalopathy. She is upgraded to IMCU. She is placed on daily aspirin and statin therapy. We will provide blood pressure and glucose control. MRI attempt today failed due to patient anxiety. Discussed with daughter today; will reattempt tomorrow with [facility] to MRI. PT/OT/ST consultation. Discharge planning consulted. - Time Time Spent with patient: 25-34 minutes Anticipated discharge: SNF
[2020-02-28] MEDS: BRIMONIDINE TARTRATE 0.2% OPH SOLN 5 ML OU SCH (20:36)
--- NOTE | 2020-02-28 20:45 | XCELERA REPORT ---
[address] [address] Transthoracic Echocardiogram Report Name: DOUGLAS PERRY Age: 64 yrs Gender: Female : 1955 Patient Status: Inpatient Patient Location: [address] [place] [address] Study Date: 02/28/2020 06:32 PM Height: 67 in Weight: 275 lb BSA: 2.3 m2 Procedure: A two-dimensional transthoracic echocardiogram with color flow and Doppler was performed. The study was technically limited with all images being suboptimal in quality. Reason For Study: syncope, TIA History: syncope, TIA. Ordering Physician: ROSEMARY CRISTOBAL Performed By: Lolis Quiroz Interpretation Summary There is no obvious cardiac source of embolus noted on this transthoracic echocardiogram. Follow-up with a OPAL is suggested if cardiac source is still suspected. The left ventricle is normal in size. There is normal left ventricular wall thickness. LV EF is 65% Left ventricular systolic function is normal. Doppler measurements suggest impaired left ventricular relaxation, which is associated with grade I/IV or mild diastolic dysfunction The left ventricular wall motion is normal. There is no thrombus. Probably no ASD,VSD,or OFO seen. The right ventricle is grossly normal size. The right ventricle is not well visualized secondary to technical limitations The right atrium is normal. The left atrial size is normal. There is no evidence of mitral valve prolapse. There is no vegetation seen on the mitral valve. There is no mitral valve stenosis. There is a trace amount of mitral regurgitation There is no aortic valvular vegetation. There is no aortic valve stenosis There is no LVOT obstruction. No aortic regurgitation is present. There is no tricuspid stenosis. There is a trace amount of tricuspid regurgitation There is mild pulmonary hypertension by echo RVSP is 31 to 36 mm of Hg , with RA mean of 5 to 10. There is no pulmonic valvular stenosis. There is a trace amount of pulmonic regurgitation The aortic root is normal size. The inferior vena cava appeared normal and decreased > 50% with respiration (RAP 5-10 mmHg) There is no pericardial effusion. There is no obvious cardiac source of embolus noted on this transthoracic echocardiogram. Follow-up with a OPAL is suggested if cardiac source is still suspected MMode/2D Measurements & Calculations RVDd: 3.0 cm LVIDd: 4.8 cm FS: 42.2 % Ao root diam: 3.3 cm IVSd: 1.3 cm LVIDs: 2.8 cm EDV(Teich): 107.1 ml Ao root area: 8.8 cm2 LVPWd: 0.97 cm ESV(Teich): 28.7 ml LA dimension: 4.3 cm EF(Teich): 73.2 % Doppler Measurements & Calculations MV E max jonny: MV P1/2t max jonny: Ao V2 max: LV V1 max P.2 cm/sec 80.8 cm/sec 141.4 cm/sec 4.4 mmHg MV A max jonny: MV P1/2t: 73.9 msec Ao max PG: LV V1 max: 74.0 cm/sec MVA(P1/2t): 3.0 cm2 8.0 mmHg 105.3 cm/sec MV E/A: 0.85 MV dec slope: 319.9 cm/sec2 MV dec time: 0.34 sec PA V2 max: PI end-d jonny: TR max jonny: MV P1/2t-pr_phl: 86.4 cm/sec 111.3 cm/sec 254.1 cm/sec 73.9 msec PA max PG: TR max P.0 mmHg 25.8 mmHg Left Ventricle The left ventricle is normal in size. There is normal left ventricular wall thickness. LV EF is 65%. Left ventricular systolic function is normal. Doppler measurements suggest impaired left ventricular relaxation, which is associated with grade I/IV or mild diastolic dysfunction. The left ventricular wall motion is normal. There is no thrombus. Probably no ASD,VSD,or OFO seen. Right Ventricle The right ventricle is grossly normal size. The right ventricle is not well visualized secondary to technical limitations. Atria The right atrium is normal. The left atrial size is normal. Mitral Valve There is no evidence of mitral valve prolapse. There is no vegetation seen on the mitral valve. There is no mitral valve stenosis. There is a trace amount of mitral regurgitation. Aortic Valve There is no aortic valvular vegetation. There is no aortic valve stenosis. There is no LVOT obstruction. No aortic regurgitation is present. Tricuspid Valve There is no tricuspid stenosis. There is a trace amount of tricuspid regurgitation. There is mild pulmonary hypertension by echo. RVSP is 31 to 36 mm of Hg , with RA mean of 5 to 10. Pulmonic Valve There is no pulmonic valvular stenosis. There is a trace amount of pulmonic regurgitation. Great Vessels The aortic root is normal size. The inferior vena cava appeared normal and decreased > 50% with respiration (RAP 5-10 mmHg). Effusions There is no pericardial effusion. : ROSEMARY CRISTOBAL Lakshmi
[2020-02-28] MEDS: ATORVASTATIN CALCIUM 80 MG TABLET PO SCH (21:59)
[2020-02-28] MEDS: LATANOPROST 0.005% OPH SOLN 2.5 ML OU SCH (22:03)
[2020-02-28] MEDS: MAG HYDROX/AL HYDROX/SIMETH SUSP 30 ML UDCUP PO PRN (23:55)
[2020-02-29] MEDS: PANTOPRAZOLE SODIUM 40 MG TABLET.DR PO SCH (05:24)
[2020-02-29] MEDS: HEPARIN SOD (PORCINE) 5,000 UNIT/ML 1 ML VIAL SUBCUT SCH ×3 (05:24→22:29)
[2020-02-29 06:41] LABS: HEMATOCRIT 38.5 % (36.0-47.0); HEMOGLOBIN 12.8 g/dL (12.0-15.5); MEAN CORPUSCULAR HEMOGLOBIN 28.9 pg (27.0-33.4); MEAN CORPUSCULAR HGB CONC 33.4 g/dL (32.0-36.0); MEAN CORPUSCULAR VOLUME 87 fl (80-97); PLATELET COUNT 236 10^3/uL (150-450); RED BLOOD COUNT 4.45 10^6/uL (3.72-5.28); RED CELL DISTRIBUTION WIDTH 13.8 % (11.5-14.0); WHITE BLOOD COUNT 9.1 10^3/uL (4.0-10.5)
[2020-02-29 07:01] LABS: ANION GAP 6 (5-19); BLOOD UREA NITROGEN 15 mg/dL (7-20); CALCIUM 9.6 mg/dL (8.4-10.2); CARBON DIOXIDE 26 mmol/L (22-30); CHLORIDE 105 mmol/L (98-107); GLUCOSE 263 mg/dL (75-110); POTASSIUM 3.8 mmol/L (3.6-5.0)
[2020-02-29] MEDS: NORMAL SALINE 1000 ML 1,000 ML IV PRN ×2 (07:10→18:01)
[2020-02-29] MEDS: HYDROCHLOROTHIAZIDE 25 MG TABLET PO SCH (10:22)
[2020-02-29] MEDS: CLONIDINE HCL 0.1 MG TABLET PO SCH ×4 (10:22→22:27)
[2020-02-29] MEDS: GABAPENTIN 300 MG CAPSULE PO SCH ×2 (10:22→22:25)
[2020-02-29] MEDS: AMLODIPINE BESYLATE 10 MG TABLET PO SCH (10:22)
[2020-02-29] MEDS: DOCUSATE SODIUM 100 MG CAPSULE PO SCH (10:23)
[2020-02-29] MEDS: LOSARTAN POTASSIUM 50 MG TABLET PO SCH (10:23)
[2020-02-29] MEDS: BRIMONIDINE TARTRATE 0.2% OPH SOLN 5 ML OU SCH ×2 (10:23→17:14)
[2020-02-29] MEDS: METOPROLOL TARTRATE 100 MG TABLET PO SCH (10:23)
[2020-02-29] MEDS: LORATADINE 10 MG TABLET PO SCH (10:23)
[2020-02-29] MEDS: CEFTRIAXONE 1 GM/D5W RTU 1 GM/50 ML RTUPB IV SCH (10:23)
[2020-02-29] MEDS: ASPIRIN 325 MG TABLET, ENT COATED PO SCH (10:23)
[2020-02-29] MEDS ORDERED: LORAZEPAM INJ 2 MG/1 ML VIAL IV PRN (11:52)
--- NOTE | 2020-02-29 14:21 | RADIOLOGY REPORT (SQ) ---
EXAM DESCRIPTION: MRI HEAD WITHOUT IMAGES COMPLETED DATE/TIME: 02/29/2020 2:06 pm REASON FOR STUDY: AMS, left side weakness COMPARISON: CT dated 02/26/2020. TECHNIQUE: Multiplanar imaging includes non-contrasted T1, T2, FLAIR, and diffusion with ADC map seq uences. Images stored on PACS. LIMITATIONS: None. FINDINGS: ANATOMY: No anomalies. Normal vascular flow voids. Pituitary fossa normal. CSF SPACES: Atrophy induced prominence of ventricles and CSF spaces. CEREBRUM: High signal intensity lesions scattered throughout the white matter on FLAIR imaging with d istribution suggesting micro-vascular ischemic changes. No evidence of hemorrhage, mass, or extraaxi al fluid collection. POSTERIOR FOSSA: No signal alteration. No hemorrhage. No edema, masses or mass effect. Internal haily tory canals, cerebello-pontine angles, mastoids normal. DIFFUSION IMAGING: Restricted diffusion in the medial right cerebral hemisphere in the anterior cereb ral artery distribution. ORBITS: No masses. Globes normal. PARANASAL SINUSES: No fluid levels. Mucosa normal. OTHER: No other significant finding. IMPRESSION: ATROPHY AND CHRONIC MICRO-VASCULAR ISCHEMIC CHANGES. ACUTE INFARCT IN THE DISTRIBUTION OF THE RIGHT ANTERIOR CEREBRAL ARTERY. EVIDENCE OF ACUTE STROKE: YES. RIGHT MITCH. COMMENT: Pertinent findings on the imaging study reported as a CRITICAL RESULT to patient's nurse o n [address] [place] at14:15 on 02/29/2020. Category of Critical Result: Acute cerebral infarct. TECHNICAL DOCUMENTATION: JOB ID: [id number] 2010 [employer]- All Rights Reserved Reading location - IP/workstation name: [email or web address]
--- NOTE | 2020-02-29 14:59 | PDOC PROGRESS REPORT ---
Subjective Subjective:: DOUGLAS PERRY is a 64 year old female with a past medical history significant for hypertension, hyperlipidemia, diabetes mellitus, and obesity who was admitted 02/27/2020 with acute encephalopathy and UTI. Patient was seen on morning rounds. She was found resting in bed, comfortably, on room air. She is A&Ox4. She continues to make random statements; though does appear more alert w/ higher level thinking. She reports inability to use her left arm and leg; however, does continue to have a slightly inconsistent ex am (? underlying deficit w/ confusion) She denies chest pain, palpitations, dyspnea, nausea and vomiting. She again reports suprapubic abdominal discomfort. She appears to be comfortable and is not noted to be in any acute distress. No concerns per nursing. Patient's daughter, Angi, was called and updated on patient MRI findings of acute CVA Reason For Visit: ENCEPHALOPATHY,UTI Physical Exam Vital Signs: Temp Pulse Resp BP Pulse Ox 98.7 F 76 16 171/96 H 98 02/29/20 10:56 02/29/20 14:00 02/29/20 13:00 02/29/20 13:00 02/29/20 13:00 Intake & Output 02/28/20 02/29/20 03/01/20 06:59 06:59 06:59 Intake Total 2149 2045 1829 Output Total 100 150 Balance 2049 1895 1829 Weight 125 kg 126.6 kg General appearance: PRESENT: no acute distress, cooperative, morbidly obese, well-developed, well-nourished Head exam: PRESENT: atraumatic, normocephalic Eye exam: PRESENT: conjunctiva pink, EOMI, PERRLA. ABSENT: scleral icterus Mouth exam: PRESENT: moist, tongue midline Respiratory exam: PRESENT: clear to auscultation renu, symmetrical, unlabored. ABSENT: rales, rhonchi, wheezes Cardiovascular exam: PRESENT: RRR, +S1, +S2. ABSENT: diastolic murmur, rubs, systolic murmur Pulses: PRESENT: normal dorsalis pedis pul Vascular exam: PRESENT: normal capillary refill GI/Abdominal exam: PRESENT: normal bowel sounds, soft, tenderness - suprapubic. ABSENT: distended, guarding, mass, organolmegaly, rebound Rectal exam: PRESENT: deferred Extremities exam: ABSENT: calf tenderness, clubbing, pedal edema Neurological exam: PRESENT: alert, awake, oriented to person, oriented to place, oriented to time, oriented to situation, CN II-XII grossly intact, other - LUE 2/5, LLE 1/5. ABSENT: motor sensory deficit Psychiatric exam: PRESENT: appropriate affect, normal mood. ABSENT: homicidal ideation, suicidal ideation Skin exam: PRESENT: dry, intact, warm. ABSENT: cyanosis, rash Results Laboratory Results: 02/29/20 06:08 02/29/20 06:08 02/29/20 02/29/20 06:08 06:08 WBC 9.1 RBC 4.45 Hgb 12.8 Hct 38.5 MCV 87 MCH 28.9 MCHC 33.4 RDW 13.8 Plt Count 236 Sodium 136.6 L Potassium 3.8 Chloride 105 Carbon Dioxide 26 Anion Gap 6 BUN 15 Creatinine 0.88 Est GFR ( Amer) > 60 Glucose 263 H Calcium 9.6 02/27/20 13:45 Clean Catch Midstream Urine Culture - Final Escherichia Coli 02/28/20 02/28/20 02/29/20 11:33 18:24 00:24 Troponin I < 0.012 < 0.012 < 0.012 Impressions: Abdomen/Pelvis CT 02/27/20 11:41 IMPRESSION: 1. No evidence of acute intra-abdominal infectious/inflammatory process 2. No intravenous contrast is demonstrated on this examination. Evaluation of scout leaser imaging is unremarkable. Recommend radiographic evaluation of the injection site. Humerus X-Ray 02/27/20 13:45 IMPRESSION: Intravenous contrast extravasation. Findings were discussed with the treating physician, Dr. Georges, at [address] protocol reveals 99.6 mL Omnipaque 350 administered. Carotid Doppler Study 02/28/20 00:00 IMPRESSION: NO HEMODYNAMICALLY SIGNIFICANT STENOSIS. Head MRI 02/29/20 00:00 IMPRESSION: ATROPHY AND CHRONIC MICRO-VASCULAR ISCHEMIC CHANGES. ACUTE INFARCT IN THE DISTRIBUTION OF THE RIGHT ANTERIOR CEREBRAL ARTERY. EVIDENCE OF ACUTE STROKE: YES. RIGHT MITCH. Assessment and Plan - Diagnosis (1) Acute ischemic cerebrovascular accident (CVA) involving anterior cerebral artery territory Is this a current diagnosis for this admission?: Yes Plan: MRI head shows acute infarct in the distribution of the right anterior cerebral artery. Echo shows LVEF 65% with mild diastolic dysfunction, mild pulmonary hypertension Carotid Doppler is negative for hemodynamically significant stenosis. A1c 8.4%. Lipid panel pending. She is upgraded to IMCU. She is placed on daily aspirin and statin therapy. We will provide blood pressure and glucose control. PT/OT/ST consultation. Will consult Dr. Alejandra. Discharge planning consulted for rehab. (2) Encephalopathy Is this a current diagnosis for this admission?: Yes Plan: Improved. Acute metabolic encephalopathy secondary to dehydration, UTI, and acute CVA. UDS did show opiates; likely related to morphine provided during ED visit the day prior to admission Upgrade to IMCU on continuous telemetry. Supportive care. Gentle IV fluids. Treatment of UTI as below. CVA management as below. Avoid narcotics and other sedating medications. Fall precautions. Discharge planning consulted. (3) UTI (urinary tract infection) Qualifiers: Urinary tract infection type: acute cystitis Is this a current diagnosis for this admission?: Yes Plan: Blood cultures have no growth to date. Urine culture shows e. coli She is empirically placed on IV Rocephin. Gentle IV fluids. Pyridium 3 times daily Encourage p.o. fluids. (4) Extravasation injury Is this a current diagnosis for this admission?: Yes Plan: Improved; mild tenderness. Swelling is decreased. To LUE r/t CT contrast dye. Keep arm elevated Heating pad for comfort (5) Hypertension Qualifiers: Hypertension type: essential hypertension Qualified Code(s): I10 - Ess[facility] l (primary) hypertension Is this a current diagnosis for this admission?: Yes Plan: Continue home medication regiment of amlodipine, Clonidine, metoprolol, losartan, and hydrochlorothiazide. Gradual reduction r/t acute CVA IV hydralazine as needed for blood pressure control. Cardiac diet. (6) Diabetes mellitus Qualifiers: Diabetes mellitus type: type 2 Diabetes mellitus [facility] insulin use: without buttermaker use Diabetes mellitus complication status: with unspecified complications Is this a current diagnosis for this admission?: Yes Plan: A1c 8.4% Tight glycemic control r/t acute CVA Patient is placed on a consistent carb diet. Accu-Cheks before meals and at bedtime with Humalog for sliding scale coverage. Hypoglycemia protocol in place. Registered dietitian patient educator consulted. (7) Frequent falls Is this a current diagnosis for this admission?: Yes Plan: Physical therapy consultation Fall precautions - Time Time Spent with patient: 35 or more minutes Medications reviewed and adjusted accordingly: Yes Anticipated discharge: SNF Within: within 48 hours
[2020-02-29] MEDS: PHENAZOPYRIDINE HCL 100 MG TABLET PO SCH (17:14)
[2020-02-29] MEDS: INSULIN LISPRO 100 UNIT/ML 3 ML VIAL SUBCUT SCH ×2 (17:43→22:30)
[2020-02-29] MEDS ORDERED: HYDRALAZINE HCL INJ/PF 20 MG/1 ML SDV IV PRN (18:00)
[2020-02-29] MEDS: ACETAMINOPHEN 325 MG TABLET PO PRN (22:25)
[2020-02-29] MEDS: ATORVASTATIN CALCIUM 80 MG TABLET PO SCH (22:27)
[2020-02-29] MEDS: LATANOPROST 0.005% OPH SOLN 2.5 ML OU SCH (22:38)
[2020-03-01] MEDS: NORMAL SALINE 1000 ML 1,000 ML IV PRN (03:18)
[2020-03-01] MEDS: PHENAZOPYRIDINE HCL 100 MG TABLET PO SCH ×4 (03:18→22:10)
[2020-03-01] MEDS: PANTOPRAZOLE SODIUM 40 MG TABLET.DR PO SCH (05:44)
[2020-03-01] MEDS: HEPARIN SOD (PORCINE) 5,000 UNIT/ML 1 ML VIAL SUBCUT SCH ×3 (05:44→22:09)
[2020-03-01] MEDS: ACETAMINOPHEN 325 MG TABLET PO PRN ×2 (06:11→22:11)
[2020-03-01 06:27] LABS: ANION GAP 6 (5-19); BLOOD UREA NITROGEN 15 mg/dL (7-20); CALCIUM 9.9 mg/dL (8.4-10.2); CARBON DIOXIDE 27 mmol/L (22-30); CHLORIDE 105 mmol/L (98-107); CHOLESTEROL 167.29 mg/dL (0-200); GLUCOSE 233 mg/dL (75-110); POTASSIUM 3.8 mmol/L (3.6-5.0); TRIGLYCERIDES 150 mg/dL (<150)
[2020-03-01 06:37] LABS: DIRECT LDL 79 mg/dL (<100)
[2020-03-01] MEDS: METOPROLOL TARTRATE 100 MG TABLET PO SCH (09:49)
[2020-03-01] MEDS: GABAPENTIN 300 MG CAPSULE PO SCH ×2 (09:50→22:10)
[2020-03-01] MEDS: HYDROCHLOROTHIAZIDE 25 MG TABLET PO SCH (09:50)
[2020-03-01] MEDS: LOSARTAN POTASSIUM 50 MG TABLET PO SCH (09:50)
[2020-03-01] MEDS: DOCUSATE SODIUM 100 MG CAPSULE PO SCH (09:50)
[2020-03-01] MEDS: LORATADINE 10 MG TABLET PO SCH (09:51)
[2020-03-01] MEDS: ASPIRIN 325 MG TABLET, ENT COATED PO SCH (09:51)
[2020-03-01] MEDS: INSULIN LISPRO 100 UNIT/ML 3 ML VIAL SUBCUT SCH ×4 (09:51→22:23)
[2020-03-01] MEDS: AMLODIPINE BESYLATE 10 MG TABLET PO SCH (09:51)
[2020-03-01] MEDS: CEFTRIAXONE 1 GM/D5W RTU 1 GM/50 ML RTUPB IV SCH (09:52)
[2020-03-01] MEDS ORDERED: CLONIDINE HCL 0.1 MG TABLET PO SCH (10:00)
[2020-03-01] MEDS: BRIMONIDINE TARTRATE 0.2% OPH SOLN 5 ML OU SCH ×2 (12:01→17:29)
[2020-03-01] MEDS: CLONIDINE HCL 0.2 MG TABLET PO SCH ×3 (12:01→17:32)
--- NOTE | 2020-03-01 12:30 | PDOC PROGRESS REPORT ---
Subjective Progress Note for:: 03/01/20 Subjective:: DOUGLAS PERRY is a 64 year old female with a past medical history significant for hypertension, hyperlipidemia, diabetes mellitus, and obesity who was admitted 02/27/2020 with acute encephalopathy and UTI. Patient was seen on morning rounds. She was found resting in bed, comfortably, on room air. She is A&Ox4. She continues to make random statements; though does appear more alert w/ higher level thinking. Some visual hallucinations overnight. She denies chest pain, palpitations, dyspnea, abdominal pain, nausea and vomiting. She appears to be comfortable and is not noted to be in any acute distress. No concerns per nursing. Spoke with patient's daughter, Angi, by phone while in room with patient. Reason For Visit: ENCEPHALOPATHY,UTI Physical Exam Vital Signs: Temp Pulse Resp BP Pulse Ox 98.0 F 79 18 152/91 H 92 03/01/20 11:27 03/01/20 11:27 03/01/20 11:27 03/01/20 11:27 03/01/20 11:27 Intake & Output 02/29/20 03/01/20 03/02/20 06:59 06:59 06:59 Intake Total 2046 3468 Output Total 150 2550 Balance 1896 918 Weight 126.6 kg 124.5 kg General appearance: PRESENT: no acute distress, morbidly obese, well-developed, well-nourished Head exam: PRESENT: atraumatic, normocephalic Eye exam: PRESENT: conjunctiva pink, EOMI, PERRLA. ABSENT: scleral icterus Mouth exam: PRESENT: moist, tongue midline Respiratory exam: PRESENT: clear to auscultation renu, symmetrical, unlabored. ABSENT: rales, rhonchi, wheezes Cardiovascular exam: PRESENT: RRR, +S1, +S2. ABSENT: diastolic murmur, rubs, systolic murmur Pulses: PRESENT: normal dorsalis pedis pul Vascular exam: PRESENT: normal capillary refill GI/Abdominal exam: PRESENT: normal bowel sounds, soft. ABSENT: distended, guarding, mass, organolmegaly, rebound, tenderness Rectal exam: PRESENT: deferred Extremities exam: ABSENT: calf tenderness, clubbing, pedal edema Neurological exam: PRESENT: alert, awake, oriented to person, oriented to place, oriented to time, oriented to situation, CN II-XII grossly intact, other - intermittent confusion/hallucinations. Increased movement of LUE, LLE remains 1/5. ABSENT: motor sensory deficit Psychiatric exam: PRESENT: appropriate affect, normal mood. ABSENT: homicidal ideation, suicidal ideation Skin exam: PRESENT: dry, intact, warm. ABSENT: cyanosis, rash Results Laboratory Results: 02/29/20 06:08 03/01/20 05:28 03/01/20 05:28 Sodium 137.9 Potassium 3.8 Chloride 105 Carbon Dioxide 27 Anion Gap 6 BUN 15 Creatinine 0.86 Est GFR ( Amer) > 60 Glucose 233 H Calcium 9.9 Triglycerides 150 Cholesterol 167.29 LDL Cholesterol Direct 79 VLDL Cholesterol 30.0 HDL Cholesterol 52 02/28/20 02/28/20 02/29/20 11:33 18:24 00:24 Troponin I < 0.012 < 0.012 < 0.012 Impressions: Abdomen/Pelvis CT 02/27/20 11:41 IMPRESSION: 1. No evidence of acute intra-abdominal infectious/inflammatory process 2. No intravenous contrast is demonstrated on this examination. Evaluation of director recreation imaging is unremarkable. Recommend radiographic evaluation of the injection site. Humerus X-Ray 02/27/20 13:45 IMPRESSION: Intravenous contrast extravasation. Findings were discussed with the treating physician, Dr. Georges, at [address] protocol reveals 99.6 mL Omnipaque 350 administered. Carotid Doppler Study 02/28/20 00:00 IMPRESSION: NO HEMODYNAMICALLY SIGNIFICANT STENOSIS. Head MRI 02/29/20 00:00 IMPRESSION: ATROPHY AND CHRONIC MICRO-VASCULAR ISCHEMIC CHANGES. ACUTE INFARCT IN THE DISTRIBUTION OF THE RIGHT ANTERIOR CEREBRAL ARTERY. EVIDENCE OF ACUTE STROKE: YES. RIGHT MITCH. Assessment and Plan - Diagnosis (1) Acute ischemic cerebrovascular accident (CVA) involving anterior cerebral artery territory Is this a current diagnosis for this admission?: Yes Plan: MRI head shows acute infarct in the distribution of the right anterior cerebral artery. Echo shows LVEF 65% with mild diastolic dysfunction, mild pulmonary hypertension Carotid Doppler is negative for hemodynamically significant stenosis. A1c 8.4%. Lipid panel is acceptable. She is upgraded to IMCU. She is placed on daily aspirin and statin therapy. We will provide blood pressure and glucose control. PT/OT/ST consultation. Will consult Dr. Alejandra; awaiting evaluation. Cardiac/consistent carb diet. Discharge planning consulted for rehab. (2) Encephalopathy Is this a current diagnosis for this admission?: Yes Plan: Continues to improve. Acute metabolic encephalopathy secondary to dehydration, UTI, and acute CVA. UDS did show opiates; likely related to morphine provided during ED visit the day prior to admission Upgrade to IMCU on continuous telemetry. Supportive care. Treatment of UTI as below. CVA management as above. Avoid narcotics and other sedating medications. Fall precautions. Discharge planning consulted. (3) UTI (urinary tract infection) Qualifiers: Urinary tract infection type: acute cystitis Is this a current diagnosis for this admission?: Yes Plan: Blood cultures have no growth to date. Urine culture shows e. coli She is empirically placed on IV Rocephin; Day #4 Pyridium 3 times daily Limit periwick use; needs frequent repositioning and skin care. Encourage p.o. fluids. (4) Extravasation injury Is this a current diagnosis for this admission?: Yes Plan: Improved; mild tenderness. Edema is resolved. To LUE r/t CT contrast dye. Keep arm elevated Heating pad for comfort (5) Hypertension Qualifiers: Hypertension type: essential hypertension Qualified Code(s): I10 - Essential (primary) hypertension Is this a current diagnosis for this admission?: Yes Plan: Continue home medication regiment of amlodipine, metoprolol, losartan, and hydrochlorothiazide. Gradual reduction r/t acute CVA Increase clonidine to 0.2 mg q6h IV hydralazine as needed for blood pressure control. Cardiac diet. (6) Diabetes mellitus Qualifiers: Diabetes mellitus type: type 2 Diabetes mellitus intermodal customer service insulin use: without intermodal customer service use Diabetes mellitus complication status: with unspecified complications Is this a current diagnosis for this admission?: Yes Plan: A1c 8.4% Tight glycemic control r/t acute CVA Patient is placed on a consistent carb diet. Resume home dose metformin. Accu-Cheks before meals and at bedtime with Humalog for sliding scale coverage. Hypoglycemia protocol in place. Registered dietitian clinical staff educator consulted. (7) Frequent falls Is this a current diagnosis for this admission?: Yes Plan: Physical therapy consultation Fall precautions - Time Time Spent with patient: 25-34 minutes Medications reviewed and adjusted accordingly: Yes Anticipated discharge: SNF Within: when bed available
[2020-03-01] MEDS: METFORMIN HCL 500 MG TABLET PO SCH (17:32)
[2020-03-01] MEDS: ATORVASTATIN CALCIUM 80 MG TABLET PO SCH (22:11)
[2020-03-01] MEDS: LATANOPROST 0.005% OPH SOLN 2.5 ML OU SCH (22:12)
[2020-03-02] MEDS: CLONIDINE HCL 0.2 MG TABLET PO SCH ×4 (01:00→17:00)
[2020-03-02] MEDS: HEPARIN SOD (PORCINE) 5,000 UNIT/ML 1 ML VIAL SUBCUT SCH ×3 (05:42→22:18)
[2020-03-02] MEDS: PANTOPRAZOLE SODIUM 40 MG TABLET.DR PO SCH (05:42)
[2020-03-02] MEDS: PHENAZOPYRIDINE HCL 100 MG TABLET PO SCH ×3 (06:10→22:17)
[2020-03-02] MEDS: INSULIN LISPRO 100 UNIT/ML 3 ML VIAL SUBCUT SCH ×4 (08:26→22:19)
[2020-03-02] MEDS: HYDROCHLOROTHIAZIDE 25 MG TABLET PO SCH (08:26)
--- NOTE | 2020-03-02 10:28 | PDOC PROGRESS REPORT ---
Subjective Progress Note for:: 03/02/20 Subjective:: DOUGLAS PERRY is a 64 year old female with a past medical history significant for hypertension, hyperlipidemia, diabetes mellitus, and obesity who was admitted 02/27/2020 with acute encephalopathy and UTI. Patient was seen on morning rounds. She was found resting in bed, comfortably, on room air. She is A&Ox4. She reports right leg muscle cramps. She also complains that she can not reach water on her own (bedside table noted to be on left side w/o water present). No other complaints today. Does talk about recent politics (all accurate); appears to have increased clarity of thought today. She denies chest pain, palpitations, dyspnea, abdominal pain, nausea and vomiting. She appears to be comfortable and is not noted to be in any acute distress. No concerns per nursing. Reason For Visit: ENCEPHALOPATHY,UTI Physical Exam Vital Signs: Temp Pulse Resp BP Pulse Ox 97.3 F 74 16 132/89 H 98 03/02/20 07:52 03/02/20 07:52 03/02/20 07:52 03/02/20 07:52 03/02/20 07:52 Intake & Output 03/01/20 03/02/20 03/03/20 06:59 06:59 06:59 Intake Total 3468 1180 Output Total 2550 2500 Balance 918 -1320 Weight 124.5 kg 124.5 kg General appearance: PRESENT: no acute distress, morbidly obese, well-developed, well-nourished Head exam: PRESENT: atraumatic, normocephalic Eye exam: PRESENT: conjunctiva pink, EOMI, PERRLA. ABSENT: scleral icterus Mouth exam: PRESENT: moist, tongue midline Respiratory exam: PRESENT: clear to auscultation renu, symmetrical, unlabored. ABSENT: rales, rhonchi, wheezes Cardiovascular exam: PRESENT: RRR, +S1, +S2. ABSENT: diastolic murmur, rubs, s ystolic murmur Pulses: PRESENT: normal dorsalis pedis pul Vascular exam: PRESENT: normal capillary refill Extremities exam: ABSENT: calf tenderness, clubbing, pedal edema Neurological exam: PRESENT: alert, awake, oriented to person, oriented to place, oriented to time, oriented to situation, CN II-XII grossly intact, other - Increased movement/strength. Diagnostic Radiologist equal 4/5, LUE 2/5, LLE 1/5. No facial asymetry or slurred speach. ABSENT: motor sensory deficit Psychiatric exam: PRESENT: appropriate affect, normal mood. ABSENT: homicidal ideation, suicidal ideation Skin exam: PRESENT: dry, intact, warm. ABSENT: cyanosis, rash Results Laboratory Results: 02/29/20 06:08 03/01/20 05:28 02/28/20 02/28/20 02/29/20 11:33 18:24 00:24 Troponin I < 0.012 < 0.012 < 0.012 Impressions: Abdomen/Pelvis CT 02/27/20 11:41 IMPRESSION: 1. No evidence of acute intra-abdominal infectious/inflammatory process 2. No intravenous contrast is demonstrated on this examination. Evaluation of tobacco hanger imaging is unremarkable. Recommend radiographic evaluation of the injection site. Humerus X-Ray 02/27/20 13:45 IMPRESSION: Intravenous contrast extravasation. Findings were discussed with the treating physician, Dr. Georges, at [address] protocol reveals 99.6 mL Omnipaque 350 administered. Carotid Doppler Study 02/28/20 00:00 IMPRESSION: NO HEMODYNAMICALLY SIGNIFICANT STENOSIS. Head MRI 02/29/20 00:00 IMPRESSION: ATROPHY AND CHRONIC MICRO-VASCULAR ISCHEMIC CHANGES. ACUTE INFARCT IN THE DISTRIBUTION OF THE RIGHT ANTERIOR CEREBRAL ARTERY. EVIDENCE OF ACUTE STROKE: YES. RIGHT MITCH. Assessment and Plan - Diagnosis (1) Acute ischemic cerebrovascular accident (CVA) involving anterior cerebral artery territory Is this a current diagnosis for this admission?: Yes Plan: MRI head shows acute infarct in the distribution of the right anterior cerebral artery. Echo shows LVEF 65% with mild diastolic dysfunction, mild pulmonary hypertension Carotid Doppler is negative for hemodynamically significant stenosis. A1c 8.4%. Lipid panel is acceptable. She is upgraded to IMCU. She is placed on daily aspirin and statin therapy. We will provide blood pressure and glucose control. PT/OT/ST consultation. Will consult Dr. Alejandra; awaiting evaluation. Cardiac/consistent carb diet. Discharge planning consulted for rehab (anticipate SNF placement > Acute rehab) (2) Encephalopathy Is this a current diagnosis for this admission?: Yes Plan: Continues to improve; A&Ox4, discussed current events with me this morning. Intermittent agitation. Acute metabolic encephalopathy secondary to dehydration, UTI, and acute CVA. UDS did show opiates; likely related to morphine provided during ED visit the da y prior to admission Upgraded to IMCU on continuous telemetry r/t CVA. Supportive care. Treatment of UTI as below. CVA management as above. Avoid narcotics and other sedating medications. Fall precautions. Discharge planning consulted. (3) UTI (urinary tract infection) Qualifiers: Urinary tract infection type: acute cystitis Is this a current diagnosis for this admission?: Yes Plan: Blood cultures have no growth to date. Urine culture shows e. coli She is empirically placed on IV Rocephin; Day #5. Last dose today. Pyridium 3 times daily Limit periwick use; needs frequent repositioning and skin care. Encourage p.o. fluids. (4) Extravasation injury Is this a current diagnosis for this admission?: Yes Plan: Resolved. Edema is resolved. To LUE r/t CT contrast dye. Keep arm elevated Heating pad for comfort (5) Hypertension Qualifiers: Hypertension type: essential hypertension Qualified Code(s): I10 - Essential (primary) hypertension Is this a current diagnosis for this admission?: Yes Plan: Now with acceptable blood pressures; 132/89 Continue home medication regiment of amlodipine, metoprolol, losartan, and hydrochlorothiazide. Have increased clonidine to 0.2 mg q6h IV hydralazine as needed for blood pressure control. Cardiac diet. (6) Diabetes mellitus Qualifiers: Diabetes mellitus type: type 2 Diabetes mellitus hand heel seat fitter insulin use: without hand heel seat fitter use Diabetes mellitus complication status: with unspecified complications Is this a current diagnosis for this admission?: Yes Plan: A1c 8.4% Tight glycemic control r/t acute CVA Patient is placed on a consistent carb diet. Resume home dose metformin. Accu-Cheks before meals and at bedtime with Humalog for sliding scale coverage. Hypoglycemia protocol in place. Registered dietitian clinical trial educator consulted. (7) Frequent falls Is this a current diagnosis for this admission?: Yes Plan: Physical therapy consultation Fall precautions - Plan Summary Summary: Medically cleared for discharge; awaiting bed offer. - Time Time Spent with patient: 25-34 minutes Medications reviewed and adjusted accordingly: Yes Anticipated discharge: SNF Within: when bed available
[2020-03-02] MEDS: CEFTRIAXONE 1 GM/D5W RTU 1 GM/50 ML RTUPB IV SCH (10:46)
[2020-03-02] MEDS: LORATADINE 10 MG TABLET PO SCH (10:46)
[2020-03-02] MEDS: BRIMONIDINE TARTRATE 0.2% OPH SOLN 5 ML OU SCH ×2 (10:46→17:00)
[2020-03-02] MEDS: GABAPENTIN 300 MG CAPSULE PO SCH ×2 (10:47→22:18)
[2020-03-02] MEDS: DOCUSATE SODIUM 100 MG CAPSULE PO SCH (10:47)
[2020-03-02] MEDS: LOSARTAN POTASSIUM 50 MG TABLET PO SCH (10:47)
[2020-03-02] MEDS: METOPROLOL TARTRATE 100 MG TABLET PO SCH (10:47)
[2020-03-02] MEDS: ASPIRIN 325 MG TABLET, ENT COATED PO SCH (10:47)
[2020-03-02] MEDS: AMLODIPINE BESYLATE 10 MG TABLET PO SCH (10:47)
[2020-03-02] MEDS: METFORMIN HCL 500 MG TABLET PO SCH ×2 (10:47→17:00)
[2020-03-02] MEDS: ACETAMINOPHEN 325 MG TABLET PO PRN (17:25)
[2020-03-02] MEDS: ATORVASTATIN CALCIUM 80 MG TABLET PO SCH (22:18)
[2020-03-02] MEDS: LATANOPROST 0.005% OPH SOLN 2.5 ML OU SCH (22:18)
[2020-03-03] MEDS: CLONIDINE HCL 0.2 MG TABLET PO SCH ×4 (01:43→17:30)
[2020-03-03] MEDS: ACETAMINOPHEN 325 MG TABLET PO PRN (01:52)
[2020-03-03] MEDS: HEPARIN SOD (PORCINE) 5,000 UNIT/ML 1 ML VIAL SUBCUT SCH ×3 (06:25→22:38)
[2020-03-03] MEDS: PANTOPRAZOLE SODIUM 40 MG TABLET.DR PO SCH (06:26)
[2020-03-03] MEDS: PHENAZOPYRIDINE HCL 100 MG TABLET PO SCH (06:26)
[2020-03-03] MEDS ORDERED: BISACODYL 10 MG SUPP.RECT PR PRN (09:12)
[2020-03-03] MEDS ORDERED: MAGNESIUM HYDROXIDE SUSP 30 ML UDCUP PO PRN (09:13)
[2020-03-03] MEDS: INSULIN LISPRO 100 UNIT/ML 3 ML VIAL SUBCUT SCH ×4 (09:25→22:09)
[2020-03-03] MEDS: BRIMONIDINE TARTRATE 0.2% OPH SOLN 5 ML OU SCH ×2 (09:25→17:30)
[2020-03-03] MEDS: DOCUSATE SODIUM 100 MG CAPSULE PO SCH (09:25)
[2020-03-03] MEDS: METFORMIN HCL 500 MG TABLET PO SCH ×2 (09:26→17:30)
[2020-03-03] MEDS: GABAPENTIN 300 MG CAPSULE PO SCH ×2 (09:26→22:38)
[2020-03-03] MEDS: LORATADINE 10 MG TABLET PO SCH (09:26)
[2020-03-03] MEDS: METOPROLOL TARTRATE 100 MG TABLET PO SCH (09:26)
[2020-03-03] MEDS: LOSARTAN POTASSIUM 50 MG TABLET PO SCH (09:26)
[2020-03-03] MEDS: ASPIRIN 325 MG TABLET, ENT COATED PO SCH (09:27)
[2020-03-03] MEDS: AMLODIPINE BESYLATE 10 MG TABLET PO SCH (09:27)
[2020-03-03] MEDS: HYDROCHLOROTHIAZIDE 25 MG TABLET PO SCH (09:27)
[2020-03-03] MEDS ORDERED: MAGNESIUM HYDROXIDE SUSP 30 ML UDCUP PO ONE (10:00)
--- NOTE | 2020-03-03 10:25 | PDOC PROGRESS REPORT ---
Subjective Progress Note for:: 03/03/20 Subjective:: DOUGLAS PERRY is a 64 year old female with a past medical history significant for hypertension, hyperlipidemia, diabetes mellitus, and obesity who was admitted 02/27/2020 with acute encephalopathy and UTI. Patient was seen on morning rounds. She was found resting in bed, comfortably, on room air. She is A&Ox4. She reports generalized abdominal discomfort; perhaps constipated. Has not had a bowel movement since prior to admission. No other questions or concerns today. She denies chest pain, palpitations, dyspnea, abdominal pain, nausea and vomiting. She appears to be comfortable and is not noted to be in any acute distress. No concerns per nursing. Reason For Visit: ENCEPHALOPATHY,UTI Physical Exam Vital Signs: Temp Pulse Resp BP Pulse Ox 97.6 F 56 L 16 151/79 H 99 03/03/20 08:09 03/03/20 08:09 03/03/20 08:09 03/03/20 08:09 03/03/20 08:09 Intake & Output 03/02/20 03/03/20 03/04/20 06:59 06:59 06:59 Intake Total 1230 1480 Output Total 2500 300 Balance -1270 1180 Weight 124.5 kg 125.4 kg General appearance: PRESENT: no acute distress, cooperative, morbidly obese, well-developed, well-nourished Head exam: PRESENT: atraumatic, normocephalic Eye exam: PRESENT: conjunctiva pink, EOMI, PERRLA. ABSENT: scleral icterus Mouth exam: PRESENT: moist, tongue midline Respiratory exam: PRESENT: clear to auscultation renu, symmetrical, unlabored. ABSENT: rales, rhonchi, wheezes Cardiovascular exam: PRESENT: RRR, +S1, +S2. ABSENT: diastolic murmur, rubs, systolic murmur Pulses: PRESENT: normal dorsalis pedis pul Vascular exam: PRESENT: normal capillary refill GI/Abdominal exam: PRESENT: normal bowel sounds, soft, tenderness - generalized; "crampy". ABSENT: distended, guarding, mass, organolmegaly, rebound Rectal exam: PRESENT: deferred Extremities exam: ABSENT: calf tenderness, clubbing, pedal edema Neurological exam: PRESENT: alert, awake, oriented to person, oriented to place, oriented to time, oriented to situation, CN II-XII grossly intact, other - Increased movement LUE; 3/5. LLE 2/5. [place] Conservation Laborer equal 4/5. ABSENT: motor sensory deficit Psychiatric exam: PRESENT: appropriate affect, normal mood. ABSENT: homicidal ideation, suicidal ideation Skin exam: PRESENT: dry, intact, warm. ABSENT: cyanosis, rash Results Laboratory Results: 02/29/20 06:08 03/01/20 05:28 02/28/20 02/28/20 02/29/20 11:33 18:24 00:24 Troponin I < 0.012 < 0.012 < 0.012 Impressions: Abdomen/Pelvis CT 02/27/20 11:41 IMPRESSION: 1. No evidence of acute intra-abdominal infectious/inflammatory process 2. No intravenous contrast is demonstrated on this examination. Evaluation of anvil seating press operator imaging is unremarkable. Recommend radiographic evaluation of the injection site. Humerus X-Ray 02/27/20 13:45 IMPRESSION: Intravenous contrast extravasation. Findings were discussed with the treating physician, Dr. Georges, at [address] protocol reveals 99.6 mL Omnipaque 350 administered. Carotid Doppler Study 02/28/20 00:00 IMPRESSION: NO HEMODYNAMICALLY SIGNIFICANT STENOSIS. Head MRI 02/29/20 00:00 IMPRESSION: ATROPHY AND CHRONIC MICRO-VASCULAR ISCHEMIC CHANGES. ACUTE INFARCT IN THE DISTRIBUTION OF THE RIGHT ANTERIOR CEREBRAL ARTERY. EVIDENCE OF ACUTE STROKE: YES. RIGHT MITCH. Assessment and Plan - Diagnosis (1) Acute ischemic cerebrovascular accident (CVA) involving anterior cerebral artery territory Is this a current diagnosis for this admission?: Yes Plan: MRI head shows acute infarct in the distribution of the right anterior cerebral artery. Echo shows LVEF 65% with mild diastolic dysfunction, mild pulmonary hypertension Carotid Doppler is negative for hemodynamically significant stenosis. A1c 8.4%. Lipid panel is acceptable. She is upgraded to IMCU. She is placed on daily aspirin and statin therapy. We will provide blood pressure and glucose control. PT/OT/ST consultation. Will consult Dr. Alejandra; awaiting evaluation. Cardiac/consistent carb diet. Discharge planning consulted for rehab (anticipate SNF placement > Acute rehab) (2) Encephalopathy Is this a current diagnosis for this admission?: Yes Plan: Resolved; A&Ox4, discussed current events with me. Acute metabolic encephalopathy secondary to dehydration, UTI, and acute CVA. UDS did show opiates; likely related to morphine provided during ED visit the day prior to admission Upgraded to IMCU on continuous telemetry r/t CVA. Supportive care. Treatment of UTI as below. CVA management as above. Avoid narcotics and other sedating medications. Fall precautions. Discharge planning consulted. (3) UTI (urinary tract infection) Qualifiers: Urinary tract infection type: acute cystitis Is this a current diagnosis for this admission?: Yes Plan: Blood cultures have no growth to date. Urine culture shows e. coli She is empirically placed on IV Rocephin; completed 5 day course. Limit periwick use; needs frequent repositioning and skin care. Encourage p.o. fluids. (4) Extravasation injury Is this a current diagnosis for this admission?: Yes Plan: Resolved. Edema is resolved. To LUE r/t CT contrast dye. Keep arm elevated Heating pad for comfort (5) Hypertension Qualifiers: Hypertension type: essential hypertension Qualified Code(s): I10 - Essential (primary) hypertension Is this a current diagnosis for this admission?: Yes Plan: Improved blood pressures Continue home medication regiment of amlodipine, metoprolol, losartan, and hyd rochlorothiazide. Have increased clonidine to 0.2 mg q6h IV hydralazine as needed for blood pressure control. Cardiac diet. (6) Diabetes mellitus Qualifiers: Diabetes mellitus type: type 2 Diabetes mellitus adjunct faculty for medical terminology insulin use: without adjunct faculty for medical terminology use Diabetes mellitus complication status: with unspecified complications Is this a current diagnosis for this admission?: Yes Plan: A1c 8.4% Tight glycemic control r/t acute CVA Patient is placed on a consistent carb diet. Resume home dose metformin. Start low dose Januvia Accu-Cheks before meals and at bedtime with Humalog for sliding scale coverage. Hypoglycemia protocol in place. Registered dietitian diabetes educator consulted. (7) Frequent falls Is this a current diagnosis for this admission?: Yes Plan: Physical therapy consultation Fall precautions - Plan Summary Summary: Medically cleared for discharge; awaiting bed offer.
[2020-03-03] MEDS: SITAGLIPTIN PHOSPHATE 25 MG TABLET PO SCH (12:11)
[2020-03-03] MEDS: ATORVASTATIN CALCIUM 80 MG TABLET PO SCH (22:37)
[2020-03-03] MEDS: LATANOPROST 0.005% OPH SOLN 2.5 ML OU SCH (22:38)
[2020-03-04] MEDS: CLONIDINE HCL 0.2 MG TABLET PO SCH ×5 (00:39→23:23)
[2020-03-04] MEDS: PANTOPRAZOLE SODIUM 40 MG TABLET.DR PO SCH (05:33)
[2020-03-04] MEDS: HEPARIN SOD (PORCINE) 5,000 UNIT/ML 1 ML VIAL SUBCUT SCH ×3 (05:33→23:23)
--- NOTE | 2020-03-04 09:20 | PDOC TRANSFER SUMMARY ---
Impression - Admit/DC Date/PCP Admission Date/Primary Care Provider: 02/27/20 15:43 Discharge Date: 03/04/20 - Discharge Diagnosis (1) Acute ischemic cerebrovascular accident (CVA) involving anterior cerebral artery territory Is this a current diagnosis for this admission?: Yes (2) Encephalopathy Is this a current diagnosis for this admission?: Yes (3) UTI (urinary tract infection) Is this a current diagnosis for this admission?: Yes (4) Extravasation injury Is this a current diagnosis for this admission?: Yes (5) Hypertension Is this a current diagnosis for this admission?: Yes (6) Diabetes mellitus Is this a current diagnosis for this admission?: Yes (7) Frequent falls Is this a current diagnosis for this admission?: Yes (8) Abdominal pain Is this a current diagnosis for this admission?: Yes - Additional Information Resuscitation Status: Full Code Discharge Diet: Cardiac, Diabetic Discharge Activity: Activity As Tolerated, Balance Activity w/Rest, Slowly Increase Activity, Supervised Activity Referrals: ALON HUDSON MD [NO LOCAL MD] - Follow up as needed Prescriptions: Clonidine HCl [Catapres 0.2 mg Tablet] 0.2 mg PO Q6 #120 tablet Aspirin [Ecotrin 325 mg EC Tablet] 325 mg PO DAILY #90 tabec Home Medications: Atorvastatin Calcium [Lipitor 10 mg Tablet] 10 mg PO DAILY 06/09/17 Amlodipine Besylate [Norvasc 10 mg Tablet] 10 mg PO DAILY #30 tablet 06/10/17 Glyburide [Diabeta 5 mg Tablet] 5 mg PO BIDBS #60 tablet 06/10/17 Hydrochlorothiazide [Hydrodiuril 25 mg Tablet] 25 mg PO QAM #30 tablet 06/10/17 Losartan Potassium 100 mg PO DAILY #30 tablet 06/10/17 Metformin HCl [Glucophage] 1,000 mg PO BID #60 tablet 06/10/17 Brimonidine Tartrate [Alphagan 0.2% Oph Soln 5 ml] 1 drop OU BID 02/27/20 Dulaglutide [Trulicity] 0.75 mg SUBCUT FR@1000 02/27/20 Gabapentin 300 mg PO Q12 02/27/20 Latanoprost [Xalatan 0.005% Oph Soln 2.5 ml] 1 drop OU QHS 02/27/20 Loratadine [Claritin 10 mg Tablet] 10 mg PO DAILY 02/27/20 Metoprolol Tartrate [Lopressor 100 mg Tablet] 100 mg PO DAILY 02/27/20 Omeprazole 40 mg PO DAILY 02/27/20 Acetaminophen [Tylenol 325 mg Tablet] 650 mg PO Q4HP PRN tablet 03/04/20 Aspirin [Ecotrin 325 mg EC Tablet] 325 mg PO DAILY #90 tabec 03/04/20 Clonidine HCl [Catapres 0.2 mg Tablet] 0.2 mg PO Q6 #120 tablet 03/04/20 Docusate Sodium [Colace 100 mg Capsule] 100 mg PO DAILY capsule 03/04/20 History of Present Illiness History of Present Illness: DOUGLAS PERRY is a 64 year old female with a past medical history significant for hypertension, hyperlipidemia, diabetes mellitus, and obesity who presented to the emergency department today with a complaint superficial abdominal discomfort; patient claims this is related to a Trulicity injection she received at her PCPs office earlier this week. Of note, patient was seen in the emergency department yesterday with complaint of bilateral lower extremity discomfort after mechanical fall at home. She reported that she has been approximately 12 hours on the floor after the fall prior to family finding her notifying EMS. Laboratory evaluation yesterday was benign. Today, patient is found to have hypertensive urgency (BP 154/106) otherwise normal vital signs, unremarkable CBC, mild hypokalemia (K3.3), and urinalysis suggestive of UTI. UDS is positive for opiates. CT ABD/Pelvis was negative for acute intra-abdominal findings. There was no intravenous contrast noted on exam; appears that her IV infiltrated her contrast dye extravasated into her left upper arm. The patient was referred to the hospitalist service for observation of her extremity due to concern that the patient displayed poor awareness of her medical needs; ED provider primarily is concerned about the patient's mentation and ability to care for herself independently. Upon my exam, the patient was clearly encephalopathic; will admit for AMS in setting of UTI and frequent falls. Hospital Course Hospital Course: (1) Acute ischemic cerebrovascular accident (CVA) involving anterior cerebral artery territory MRI head shows acute infarct in the distribution of the right anterior cerebral artery. Echo shows LVEF 65% with mild diastolic dysfunction, mild pulmonary hypertension Carotid Doppler is negative for hemodynamically significant stenosis. A1c 8.4%. Lipid panel is acceptable. She was admitted to [facility] on continuous cardiac telemetry. She was placed on daily aspirin and statin therapy. Discussed with patient's daughter; she confirms that she was not on daily aspirin therapy prior to CVA. PT/OT/ST consultation were obtained. Cardiac/consistent carb diet. She is now medically stable for discharge to SNF for continued rehab. (2) Encephalopathy Resolved; A&Ox4, discussed current events with me. Does continue to have increased fatigue from baseline. Acute metabolic encephalopathy secondary to dehydration, UTI, and acute CVA. UDS did show opiates; likely related to morphine provided during ED visit the day prior to admission Supportive care. Treatment of UTI as below. CVA management as above. Avoid narcotics and other sedating medications. Fall precautions. (3) UTI (urinary tract infection) Resolved. Blood cultures have no growth to date. Urine culture shows e. coli She is empirically placed on IV Rocephin; completed 5 day course. Encourage p.o. fluids. (4) Extravasation injury Resolved. Edema is resolved. To LUE r/t CT contrast dye. (5) Hypertension Improved blood pressures, though still not at goal. Continue home medication regiment of amlodipine, metoprolol, losartan, and hydrochlorothiazide. Have increased clonidine to 0.2 mg q6h Cardiac diet. Continued outpatient monitoring/medication adjustments. (6) Diabetes mellitus A1c 8.4% Recommend tight glycemic control r/t acute CVA Patient is placed on a consistent carb diet. Resume home dose metformin and glipizide. Registered dietitian and community educator were consulted. Continued outpatient monitoring/medication adjustments. (7) Frequent falls Physical therapy consultation Fall precautions (8) Abdominal pain Resolved following bowel movement yesterday. CT ABD/Pelvis on admission without acute findings. Completed treatment for UTI. Described as generalized, "crampy." Can't recall last BM; none since admission per nursing. Dulcolax suppository Milk of Mag now and twice daily prn. Continue daily Colace Consider enema Physical Exam Vital Signs: Temp Pulse Resp BP Pulse Ox 98.3 F 73 22 H 144/91 H 99 03/04/20 03:04 03/04/20 07:00 03/04/20 05:00 03/04/20 05:00 03/04/20 05:00 Intake & Output 03/03/20 03/04/20 03/05/20 06:59 06:59 06:59 Intake Total 1480 602 Output Total 300 650 Balance 1180 -48 Weight 125.4 kg 119.4 kg General appearance: PRESENT: no acute distress, cooperative, morbidly obese, well-developed, well-nourished Head exam: PRESENT: atraumatic, normocephalic Eye exam: PRESENT: conjunctiva pink, EOMI, PERRLA. ABSENT: scleral icterus Ear exam: PRESENT: normal external ear exam Mouth exam: PRESENT: moist, tongue midline Neck exam: ABSENT: carotid bruit, JVD, lymphadenopathy, thyromegaly Respiratory exam: PRESENT: clear to auscultation renu, symmetrical, unlabored. ABSENT: rales, rhonchi, wheezes Cardiovascular exam: PRESENT: RRR, +S1, +S2. ABSENT: diastolic murmur, rubs, systolic murmur Pulses: PRESENT: normal dorsalis pedis pul Vascular exam: PRESENT: normal capillary refill GI/Abdominal exam: PRESENT: normal bowel sounds, soft. ABSENT: distended, guarding, mass, organolmegaly, rebound, tenderness Rectal exam: PRESENT: deferred Extremities exam: ABSENT: calf tenderness, clubbing, pedal edema Neurological exam: PRESENT: alert, awake, oriented to person, oriented to place, oriented to time, oriented to situation, CN II-XII grossly intact, other - No facial asymetry or slurred speach. Improved mobilite; LUE 3/5, LLE 2/5.. ABSENT: motor sensory deficit Psychiatric exam: PRESENT: appropriate affect, normal mood. ABSENT: homicidal ideation, suicidal ideation Skin exam: PRESENT: dry, intact, warm. ABSENT: cyanosis, rash Results Laboratory Results: WBC 9.1 10^3/uL (4.0-10.5) 02/29/20 06:08 RBC 4.45 10^6/uL (3.72-5.28) 02/29/20 06:08 Hgb 12.8 g/dL (12.0-15.5) 02/29/20 06:08 Hct 38.5 % (36.0-47.0) 02/29/20 06:08 MCV 87 fl (80-97) 02/29/20 06:08 MCH 28.9 pg (27.0-33.4) 02/29/20 06:08 MCHC 33.4 g/dL (32.0-36.0) 02/29/20 06:08 RDW 13.8 % (11.5-14.0) 02/29/20 06:08 Plt Count 236 10^3/uL (150-450) 02/29/20 06:08 Lymph % (Auto) 11.7 % (13-45) L 02/27/20 12:30 [place] % (Auto) 5.8 % (3-13) 02/27/20 12:30 Eos % (Auto) 1.2 % (0-6) 02/27/20 12:30 Baso % (Auto) 0.4 % (0-2) 02/27/20 12:30 Absolute Neuts (auto) 7.8 10^3/uL (1.7-8.2) 02/27/20 12:30 Absolute Lymphs (auto) 1.1 10^3/uL (0.5-4.7) 02/27/20 12:30 Absolute Monos (auto) 0.6 10^3/uL (0.1-1.4) 02/27/20 12:30 Absolute Eos (auto) 0.1 10^3/uL (0.0-0.6) 02/27/20 12:30 Absolute Basos (auto) 0.0 10^3/uL (0.0-0.2) 02/27/20 12:30 Seg Neutrophils % 80.9 % (42-78) H 02/27/20 12:30 Sodium 137.9 mmol/L (137-145) 03/01/20 05:28 Potassium 3.8 mmol/L (3.6-5.0) 03/01/20 05:28 Chloride 105 mmol/L (98-107) 03/01/20 05:28 Carbon Dioxide 27 mmol/L (22-30) 03/01/20 05:28 Anion Gap 6 (5-19) 03/01/20 05:28 BUN 15 mg/dL (7-20) 03/01/20 05:28 Creatinine 0.86 mg/dL (0.52-1.25) 03/01/20 05:28 Est GFR ( Amer) > 60 (>60) 03/01/20 05:28 Est GFR (MDRD) Non-Af > 60 (>60) 03/01/20 05:28 Glucose 233 mg/dL (75-110) H 03/01/20 05:28 POC Glucose 222 mg/dL (70-110) H 03/04/20 08:39 Hemoglobin A1c % 8.4 % (4.7-6.0) H 02/28/20 05:57 Calcium 9.9 mg/dL (8.4-10.2) 03/01/20 05:28 Magnesium 2.1 mg/dL (1.6-2.3) 02/28/20 05:57 Total Bilirubin 0.9 mg/dL (0.2-1.3) 02/27/20 12:30 Direct Bilirubin 0.0 mg/dL (0.0-0.4) 02/27/20 12:30 Neonat Total Bilirubin Not Reportable 02/27/20 12:30 Neonat Direct Bilirubin Not Reportable 02/27/20 12:30 Neonat Indirect Bili Not Reportable 02/27/20 12:30 AST 21 U/L (14-36) 02/27/20 12:30 ALT 13 U/L (<35) 02/27/20 12:30 Alkaline Phosphatase 104 U/L (38-126) 02/27/20 12:30 Troponin I < 0.012 ng/mL 02/29/20 00:24 Total Protein 7.5 g/dL (6.3-8.2) 02/27/20 12:30 Albumin 4.0 g/dL (3.5-5.0) 02/27/20 12:30 Triglycerides 150 mg/dL (<150) 03/01/20 05:28 Cholesterol 167.29 mg/dL (0-200) 03/01/20 05:28 LDL Cholesterol Direct 79 mg/dL (<100) 03/01/20 05:28 VLDL Cholesterol 30.0 mg/dL (10-31) 03/01/20 05:28 HDL Cholesterol 52 mg/dL (>40) 03/01/20 05:28 Lipase 55.1 U/L (23-300) 02/27/20 12:30 TSH 0.49 uIU/mL (0.47-4.68) 02/28/20 05:57 Urine Color DILLAN 02/27/20 13:45 Urine Appearance CLOUDY 02/27/20 13:45 Urine pH 5.0 (5.0-9.0) 02/27/20 13:45 Ur Specific [place] 1.020 02/27/20 13:45 Urine Protein >=500 mg/dL (NEGATIVE) H 02/27/20 13:45 Urine Glucose (UA) >=500 mg/dL (NEGATIVE) H 02/27/20 13:45 Urine Ketones TRACE mg/dL (NEGATIVE) H 02/27/20 13:45 Urine Blood SMALL (NEGATIVE) H 02/27/20 13:45 Urine Nitrite POSITIVE (NEGATIVE) H 02/27/20 13:45 Urine Bilirubin NEGATIVE (NEGATIVE) 02/27/20 13:45 Urine Urobilinogen NEGATIVE mg/dL (<2.0) 02/27/20 13:45 Ur Leukocyte Esterase SMALL (NEGATIVE) H 02/27/20 13:45 Urine WBC (Auto) 31 /HPF 02/27/20 13:45 Urine RBC (Auto) 5 /HPF 02/27/20 13:45 Urine Bacteria (Auto) 3+ /HPF 02/27/20 13:45 Urine WBC Clumps FEW /HPF 02/27/20 13:45 Squamous Epi Cells Auto 1 /HPF 02/27/20 13:45 Urine Mucus (Auto) MOD /LPF 02/27/20 13:45 Urine Ascorbic Acid NEGATIVE (NEGATIVE) 02/27/20 13:45 Urine Opiates Screen UNCONFIRMED POSITIVE 02/27/20 13:45 Urine Methadone Screen NEGATIVE 02/27/20 13:45 Ur Barbiturates Screen NEGATIVE 02/27/20 13:45 Ur Phencyclidine Scrn NEGATIVE 02/27/20 13:45 Ur Amphetamines Screen NEGATIVE 02/27/20 13:45 U Benzodiazepines Scrn NEGATIVE 02/27/20 13:45 Urine Cocaine Screen NEGATIVE 02/27/20 13:45 U Marijuana (THC) Screen NEGATIVE 02/27/20 13:45 COVID-19 Source NASOPHARYNGEAL 03/02/20 01:30 COVID-19 (CAROLYN) NOT DETECTED 03/02/20 01:30 02/28/20 02/28/20 02/29/20 11:33 18:24 00:24 Troponin I < 0.012 < 0.012 < 0.012 Impressions: Abdomen/Pelvis CT 02/27/20 11:41 IMPRESSION: 1. No evidence of acute intra-abdominal infectious/inflammatory process 2. No intravenous contrast is demonstrated on this examination. Evaluation of groundwater monitoring technician imaging is unremarkable. Recommend radiographic evaluation of the injection site. Humerus X-Ray 02/27/20 13:45 IMPRESSION: Intravenous contrast extravasation. Findings were discussed with the treating physician, Dr. Georges, at [address] protocol reveals 99.6 mL Omnipaque 350 administered. Carotid Doppler Study 02/28/20 00:00 IMPRESSION: NO HEMODYNAMICALLY SIGNIFICANT STENOSIS. Head MRI 02/29/20 00:00 IMPRESSION: ATROPHY AND CHRONIC MICRO-VASCULAR ISCHEMIC CHANGES. ACUTE INFARCT IN THE DISTRIBUTION OF THE RIGHT ANTERIOR CEREBRAL ARTERY. EVIDENCE OF ACUTE STROKE: YES. RIGHT MITCH. Plan Plan of Treatment: Patient is discharged to SNF for short term rehab. She is recommend to follow up with her primary care provider within 1 week of discharge from rehab. Take medications as prescribed. Work to control blood pressure and blood sugar. Eat a consistent carb/cardiac diet. Return to the emergency department as needed for concerning symptoms. Time Spent: Greater than 30 Minutes Stroke Is this a Stroke Patient?: Yes Stroke Pt being discharged on Anti-thrombolytic therapy?: Yes Stroke Pt being discharged on Anti-coagulation therapy?: No Reason(s) for not prescribing Anti-coagulation therapy:: Not indicated Stroke Pt being discharged on Statins?: Yes Acute Heart Failure - Is this a Heart Failure Patient?: No
[2020-03-04] MEDS: INSULIN LISPRO 100 UNIT/ML 3 ML VIAL SUBCUT SCH ×4 (09:38→23:23)
[2020-03-04] MEDS: METFORMIN HCL 500 MG TABLET PO SCH ×2 (09:41→17:55)
[2020-03-04] MEDS: LOSARTAN POTASSIUM 50 MG TABLET PO SCH (09:41)
[2020-03-04] MEDS: METOPROLOL TARTRATE 100 MG TABLET PO SCH (09:41)
[2020-03-04] MEDS: HYDROCHLOROTHIAZIDE 25 MG TABLET PO SCH (09:41)
[2020-03-04] MEDS: ASPIRIN 325 MG TABLET, ENT COATED PO SCH (09:41)
[2020-03-04] MEDS: AMLODIPINE BESYLATE 10 MG TABLET PO SCH (09:41)
[2020-03-04] MEDS: LORATADINE 10 MG TABLET PO SCH (09:42)
[2020-03-04] MEDS: DOCUSATE SODIUM 100 MG CAPSULE PO SCH (09:42)
[2020-03-04] MEDS: SITAGLIPTIN PHOSPHATE 25 MG TABLET PO SCH (09:42)
[2020-03-04] MEDS: GABAPENTIN 300 MG CAPSULE PO SCH ×2 (09:42→23:23)
[2020-03-04] MEDS: BRIMONIDINE TARTRATE 0.2% OPH SOLN 5 ML OU SCH ×2 (09:43→18:04)
[2020-03-04] MEDS: ATORVASTATIN CALCIUM 80 MG TABLET PO SCH (23:23)
[2020-03-04] MEDS: ACETAMINOPHEN 325 MG TABLET PO PRN (23:35)
[2020-03-04] MEDS: LATANOPROST 0.005% OPH SOLN 2.5 ML OU SCH (23:38)
[2020-03-05 04:15] VITALS: BP 150/81
[2020-03-05] MEDS: HEPARIN SOD (PORCINE) 5,000 UNIT/ML 1 ML VIAL SUBCUT SCH (05:34)
[2020-03-05] MEDS: CLONIDINE HCL 0.2 MG TABLET PO SCH (05:34)
[2020-03-05] MEDS: PANTOPRAZOLE SODIUM 40 MG TABLET.DR PO SCH (05:34)
[2020-03-05] MEDS: BRIMONIDINE TARTRATE 0.2% OPH SOLN 5 ML OU SCH (09:43)
[2020-03-05] MEDS: METFORMIN HCL 500 MG TABLET PO SCH (09:43)
[2020-03-05] MEDS: SITAGLIPTIN PHOSPHATE 25 MG TABLET PO SCH (09:43)
[2020-03-05] MEDS: METOPROLOL TARTRATE 100 MG TABLET PO SCH (09:43)
[2020-03-05] MEDS: LOSARTAN POTASSIUM 50 MG TABLET PO SCH (09:44)
[2020-03-05] MEDS: INSULIN LISPRO 100 UNIT/ML 3 ML VIAL SUBCUT SCH ×2 (09:44→13:43)
[2020-03-05] MEDS: HYDROCHLOROTHIAZIDE 25 MG TABLET PO SCH (09:44)
[2020-03-05] MEDS: DOCUSATE SODIUM 100 MG CAPSULE PO SCH (09:44)
[2020-03-05] MEDS: LORATADINE 10 MG TABLET PO SCH (09:44)
[2020-03-05] MEDS: GABAPENTIN 300 MG CAPSULE PO SCH (09:44)
[2020-03-05] MEDS: AMLODIPINE BESYLATE 10 MG TABLET PO SCH (09:44)
[2020-03-05] MEDS: ASPIRIN 325 MG TABLET, ENT COATED PO SCH (09:44)
== END 2020-03-05 14:57 | DRG 64 ==
LOC: ER 09:39 → EH 15:43 → 4S 18:01 → 3W 02-28 11:54
PROVIDERS: ADMIT Internal Medicine; ATTEND Hospitalist
DX: I63.521 Cerebral infarction due to unspecified occlusion or stenosis of right anterior cerebral artery (principal); G93.41 Metabolic encephalopathy; N39.0 Urinary tract infection, site not specified; T80.818A Extravasation of other vesicant agent, initial encounter; Z68.41 Body mass index [BMI] 40.0-44.9, adult; R10.9 Unspecified abdominal pain; E87.6 Hypokalemia; I16.0 Hypertensive urgency; I10 Essential (primary) hypertension; R31.9 Hematuria, unspecified; E78.5 Hyperlipidemia, unspecified; E11.9 Type 2 diabetes mellitus without complications; K21.9 Gastro-esophageal reflux disease without esophagitis; R44.1 Visual hallucinations; E66.01 Morbid (severe) obesity due to excess calories; Y84.8 Other medical procedures as the cause of abnormal reaction of the patient, or of later complication, without mention of misadventure at the time of the procedure; Y92.238 Other place in hospital as the place of occurrence of the external cause; Z03.818 Encounter for observation for suspected exposure to other biological agents ruled out; Z79.84 Long term (current) use of oral hypoglycemic drugs; Z79.899 Other long term (current) drug therapy
CPT/HCPCS: 36415; 70450; 70551; 71045; 72125; 74177; 80048; 80053; 80061; 80307; 81001; 82550; 82962; 83036; 83605; 83690; 83735; 83880; 84443; 84484; 85025; 85027; 85610; 85730; 87040; 87086; 87088; 87186; 87635; 93005; 93010; 93306; 93880; 96360; 99285; C9803; J0360; J0696; J1644; J1815; J2060; J3490; J7030